=== PATIENT | female | born 1950 | race Caucasian/White ===

== ENCOUNTER 2016-09-13 23:05 | Observation (INO) | payer MEDICARE, OTHER ==
[2016-09-13] MEDS ORDERED: METHYLPREDNISOLONE INJ 125 MG/2 ML SDV IV ONE (23:39)
[2016-09-13] MEDS ORDERED: IPRATROPIUM/ALBUTEROL 0.5-2.5 MG/3 ML AMPUL NEB ONE (23:39)
--- NOTE | 2016-09-13 23:55 | ER Document Report ---
ED General - General Chief Complaint: Breathing Difficulty Stated Complaint: DIFFICULTY BREATHING Notes: Patient is 66-year-old female the history of smoking who presents with difficulty breathing and wheezing. She does not use an inhaler at home. Her primary care doctor is Dr. Garcia. She says she started with some difficulty breathing over last 2 days. No fevers. No vomiting. No diarrhea. No treatment at home. No other complaints at this time. No previous history of intubation for wheezing or bronchitis. TRAVEL OUTSIDE OF THE [place] IN LAST 30 DAYS: No - Related Data Allergies/Adverse Reactions: No Known Allergies Allergy (Verified 09/14/16 00:15) Past Medical History - Social History Smoking Status: Current Every Day Smoker Frequency of alcohol use: None Drug Abuse: None Family History: Reviewed & Not Pertinent - Past Medical History Cardiac Medical History: Reports: Hx Congestive Heart Failure, Hx Hypercholesterolemia, Hx Hypertension Review of Systems - Review of Systems Notes: My Normal Review Basic REVIEW OF SYSTEMS: CONSTITUTIONAL : Denies fever, chills, or sweats. Denies recent illness. EENT: Denies eye, ear, throat, or mouth pain or symptoms. Denies nasal or sinus congestion. CARDIOVASCULAR: Denies chest pain. RESPIRATORY: Some wheezing. The current cough GASTROINTESTINAL: Denies abdominal pain. Denies nausea, vomiting, or diarrhea. Denies constipation. Last BM: MUSCULOSKELETAL: Denies neck or back pain or joint pain or swelling. SKIN: Denies rash or skin lesions. NEUROLOGICAL: Denies altered mental status or loss of consciousness. Denies headache. Denies weakness or paralysis or loss of use of either side. Denies problems with gait or speech. Denies sensory or motor loss. ALL OTHER SYSTEMS REVIEWED AND NEGATIVE. Physical Exam - Vital signs Vitals: Temp Pulse Resp BP Pulse Ox 98.0 F 88 24 H 146/70 H 90 L 09/13/16 23:07 09/13/16 23:07 09/13/16 23:07 09/13/16 23:07 09/13/16 23:07 - Notes Notes: General Appearance: Well nourished, alert, cooperative, mild acute distress, no obvious discomfort. Vitals: reviewed, See vital signs table. Head: no swelling or tenderness to the head Eyes: PERRL, EOMI, Conjuctiva clear Mouth: No decreasd moisture Throat: No tonsillar inflammation, No airway obstruction, No lymphadenopathy Neck: Supple, no neck tenderness, No thyromegaly Lungs: Diffuse wheezing. Some rhonchi good air exchange. Heart: Normal rate, Regular rythm, No murmur, no rub Abdomen: Normal BS, soft, No rigidity, No abdominal tenderness, No guarding, no rebound, no abdominal masses, no organomegaly Extremities: strength 5/5 in all extremities, good pulses in all extremities, no swelling or tenderness in the extremities, no edema. Skin: warm, dry, appropriate color, no rash Neuro: speech clear, oriented x 3, normal affect, responds appropriately to questions. Course - Re-evaluation Re-evalutation: 09/14/16 01:58 On reevaluation patient says she is feeling improved; however, her lungs are still very coarse and rhoncorous. Also she is 91-92% on 2 L of oxygen. She usually does not wear oxygen at home. We will give her 2 more DuoNeb treatments and reassess. - Vital Signs Vital signs: Temp Pulse Resp BP Pulse Ox 98.0 F 88 12 101/60 90 L 09/14/16 02:56 09/13/16 23:07 09/14/16 03:01 09/14/16 03:01 09/14/16 03:01 - Laboratory Result Diagrams: 09/13/16 23:36 09/13/16 23:36 Laboratory results interpreted by me: 09/13/16 09/13/16 23:36 23:36 MCH 33.5 H Plt Count 130 L Glucose 123 H Calcium 10.3 H - Transfer of Care Notes: 09/14/16 03:48 Patient is feeling improved after the breathing treatments; however, patient still has diffuse wheezing and only fair air movement. Her distress is gone but she still has significant wheezing and still is requiring supplemental oxygen. I have spoken with her and she does agree to admission. I did speak with the hospitalist, Dr. Booth, who agrees to admit the patient at this time. Dictation of this chart was performed using voice recognition software; therefore, there may be some unintended grammatical errors. Discharge - Discharge Clinical Impression: Bronchitis Condition: Stable Disposition: ADMITTED OBSERVATION Admitting Provider: [facility] Unit Admitted: Telemetry
[2016-09-14 00:03] LABS: ABSOLUTE BASOPHILS # (AUTO) 0.1 10^3/uL (0.0-0.2); ABSOLUTE EOSINOPHILS # (AUTO) 0.1 10^3/uL (0.0-0.6); ABSOLUTE LYMPHOCYTES (AUTO) 1.8 10^3/uL (0.5-4.7); BASOPHILS % (AUTO) 0.6 % (0-2); EOSINOPHILS % (AUTO) 1.6 % (0-6); HEMATOCRIT 41.7 % (36.0-47.0); HEMOGLOBIN 14.3 g/dL (12.0-15.5); HGB HCT DIFFERENCE 1.2; LYMPHOCYTES % (AUTO) 19.8 % (13-45); MEAN CORPUSCULAR HEMOGLOBIN 33.5 pg (27.0-33.4); MEAN CORPUSCULAR HGB CONC 34.4 g/dL (32.0-36.0); MEAN CORPUSCULAR VOLUME 97 fl (80-97); MONOCYTES % (AUTO) 11.3 % (3-13); RED BLOOD COUNT 4.29 10^6/uL (3.72-5.28); RED CELL DISTRIBUTION WIDTH 13.9 % (11.5-14.0); SEGMENTED NEUTROPHILS % (AUTO) 66.7 % (42-78)
[2016-09-14] MEDS: MAGNESIUM SULFATE/D5W 100 ML IV SCH ×2 (00:04→01:18)
[2016-09-14 00:08] LABS: ANION GAP 13 (5-19); BLOOD UREA NITROGEN 12 mg/dL (7-20); CALCIUM 10.3 mg/dL (8.4-10.2); CARBON DIOXIDE 25 mmol/L (22-30); CHLORIDE 103 mmol/L (98-107); CREATININE RESULT 0.75 mg/dL (0.52-1.25); GLUCOSE 123 mg/dL (75-110); POTASSIUM 4.1 mmol/L (3.6-5.0); SODIUM 140.7 mmol/L (137-145)
[2016-09-14] MEDS ORDERED: IPRATROPIUM/ALBUTEROL 0.5-2.5 MG/3 ML AMPUL NEB ONE (01:58)
[2016-09-14] MEDS ORDERED: IPRATROPIUM/ALBUTEROL 0.5-2.5 MG/3 ML AMPUL NEB PRN (05:04)
[2016-09-14] MEDS ORDERED: NICOTINE 21 MG/24 HR PATCH.TD24 TD PRN (05:04)
[2016-09-14] MEDS ORDERED: GUAIFENESIN SYRP 200 MG/10 ML UDC PO PRN (05:15)
[2016-09-14] MEDS ORDERED: ACETAMINOPHEN 325 MG TABLET PO PRN (05:15)
[2016-09-14 05:17] LABS: ADD ON TESTING BLD IN LAB ACKNOWLEDGE
[2016-09-14 05:28] LABS: CREATINE KINASE 49 U/L (30-135)
[2016-09-14 05:42] LABS: CREATINE KINASE MB 0.31 ng/mL (<4.55)
--- NOTE | 2016-09-14 05:42 | PDOC H&P ---
History of Present Illness Admission Date/PCP: 09/14/16 04:57 ROMAINE JOHNSON, Sallie, Dr. Montana Patient complains of: difficulty breathing History of Present Illness: ISRA PARRA is a 66 year old female underlying nonhome O2 dependent COPD, one and a half pack-a-day smoker, who presents to the emergency room for evaluation of above complaint. Patient has been discussed with emergency room physician who evaluated the patient. She describes a 2 day history of slowly progressive shortness of breath, in particular with much of any exertion. Accompanied by wheezing, which is unusual for her, along with a cough productive of some sputum, which she cannot completely expectorate. No sick contacts. Has not had a flu vaccination this year, but has had 2 previous Pneumovax. 2 L oxygen brings her saturation to 92% in the emergency room..When taken off oxygen, her sats drop to the mid to upper 80 range. ongoing wheezing and rhonchorous breath sounds. There has been no fever or shaking chills, nausea vomiting, diarrhea or dysuria. Does not use an inhaler at home. No prior history of intubation for respiratory difficulty. Denies underlying asthma. Laboratory results are listed in [facility] and are reviewed. X-ray summary results are listed below, with full report(s) reviewed. . EKG pending. Social history/personal habits: . Lives with friend. Retired. One and half packs of cigarettes per day. Does not drink everyday, but 3 beers a day when she does. Rare marijuana use; no other illicit drug use. Family History : Son and daughter are both , daughter having passed approximately 3 months ago. Siblings are . Both parents of cancer. Allergies/adverse reactions NKDA. Home medications are reviewed by bottle review and discussion with patient and are to be reconciled by nursing staff in [facility]. Home medications initially autopopulated into [facility] may not accurately reflect patient's true medications, dosages, and/or frequencies. REVIEW OF SYSTEMS: Constitutional: No fever or chills. Eyes: Wears glasses. ENT: No swallowing problems or complaints. No hearing problems or complaints. Pulmonary: See history and present illness. Cardiovascular: No current complaints, including chest pain. Gastrointestinal: No current complaints, including nausea or vomiting. Skin: No current complaints, including rashes. Hematologic: No unusual easy bruising or bleeding. Neurologic: No current complaints, including numbness or tingling. Musculoskeletal: Joint pain from arthritis. Psychiatric: Mild Anxiety depression; denies suicidal or homicidal ideation. Endocrine: No current complaints, including polyuria. Genitourinary: No current complaints, including dysuria. 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 5 feet 6 inches tall. 65.8 kg. BMI 23.4 kg/m. Blood pressure 105/68. Pulse 78 and regular. 94% saturation on 2 L oxygen per nasal cannula. Respirations are 19 and unlabored. Well-nourished well-developed female, appearing approximately her stated age. Pleasant awake alert and cooperative. No obvious distress other than perhaps mildly anxious. Skin is warm and dry. No grossly obvious evidence of rash in areas of skin examined. No subcutaneous nodules palpated. ENT: Hearing grossly normal to normal conversation. Tongue midline on protrusion pink and slightly moist. Eyes: No scleral icterus. Pupils equal and reactive to light at 4 mm. [place] conjunctivae. Neck is supple and nontender to gentle active range of motion and palpation. Midline trachea. No palpable thyroid nodule mass enlargement or tenderness. Lymphatic: No palpable cervical or clavicular nodes. Neck and lymphatic exams limited by patient body habitus. Psychiatric: Reasonable insight into acute and chronic medical issues. Oriented to time location and why here. Lungs: Auscultation reveals equal breath sounds bilaterally. Slightly productive cough on occasion. Slightly coarse breath sounds and mild expiratory wheezing in the upper half of each hemithorax. No use of accessory respiratory muscles. Cardiovascular: Heart regular rate and rhythm, without gallop murmur or rub. No carotid or abdominal aortic bruits. No ankle or pedal edema. Faintly palpable dorsalis pedis pulses. Abdomen: soft, , slightly distended nontender with positive bowel sounds. Unable to adequately evaluate abdomen for masses or organomegaly due to distention. Extremities: Feet are warm and dry. No calf tenderness to compression. No grossly obvious visual evidence of calf swelling. Gentle manipulation of lower extremities fails to reveal any obvious evidence of injury or instability to knees hips or ankles. Neurologic: Moves upper extremities grossly normally. Patellar reflexes absent. Absent Babinski. Light touch is intact at feet. Dorsiflexion and plantarflexion of feet 5 / 5 and symmetric. Past Medical History Cardiac Medical History: Reports: Congestive Heart Failure - Uncertain if systolic and/or diastolic., DVT - History of, Hyperlipidema, Hypertension Denies: Myocardial Infarction, Pulmonary Embolism Pulmonary Medical History: Reports: Chronic Obstructive Pulmonary Disease (COPD) EENT Medical History: Reports: Eyes - Glasses Denies: Ears, Throat Neurological Medical History: Denies: Hemorrhagic CVA, Ischemic CVA, Seizures Endocrine Medical History: Denies: Diabetes Mellitus Type 1, Diabetes Mellitus Type 2, Hyperthyroidism, Hypothyroidism GI Medical History: Reports: Other - Irritable bowel syndromediarrhea. Denies: Cirrhosis, Gastroesophageal Reflux Disease, Hepatitis, Peptic Ulcer Disease Musculoskeltal Medical History: Reports: Arthritis Skin Medical History: Reports: None Denies: Eczema, Psoriasis Psychiatric Medical History: Reports: Depression, General Anxiety Disorder, Tobacco Dependency Denies: Substance Abuse Hematology: Reports: None Infectious Medical History: Denies: Hepatitis B, Hepatitis C Past Surgical History Past Surgical History: Reports: Adenoidectomy, Tubal Ligation Social History Information Source: Patient, Emergency Med Personnel, [facility] Records Lives with: Friend Smoking Status: Current Every Day Smoker Frequency of Alcohol Use: Occasional Drugs: Marijuana - Advance Directive Resuscitation Status: Full Code Surrogate healthcare decision maker:: Uncertain at this point in time. Family History Family History: Reviewed & Not Pertinent Parental Family History Reviewed: Yes Children Family History Reviewed: Yes Sibling(s) Family History Reviewed.: Yes Medication/Allergy Home Medications: Amlodipine Besylate 5 mg PO DAILY 05/28/12 Aspirin 81 mg PO DAILY 05/28/12 Carvedilol Phosphate [Coreg CR 80 mg Ext. Release Capsule] 80 mg PO DAILY Multivitamins W-Minerals [Multi-Vit 55 Plus] 1 each PO DAILY 05/28/12 Coconut Oil 1 cap PO DAILY 09/14/16 Fish Oil/Dha/Epa [Fish Oil 1,200 mg Fish Oil] 1 cap PO DAILY 09/14/16 Furosemide 1 tab PO DAILY 09/14/16 Lisinopril 1 tab PO BID 09/14/16 Potassium Chloride 1 tab PO DAILY 09/14/16 Rosuvastatin Calcium 1 tab PO DAILY 09/14/16 Allergies/Adverse Reactions: No Known Allergies Allergy (Verified 09/14/16 00:15) Physical Exam Vital Signs: Temp Pulse Resp BP Pulse Ox 98.0 F 88 19 105/68 94 09/14/16 02:56 09/13/16 23:07 09/14/16 05:01 09/14/16 04:01 09/14/16 05:01 Results Impressions: Chest X-Ray 09/13/16 23:38 IMPRESSION: NO ACUTE RADIOGRAPHIC FINDING IN THE CHEST. Assessment & Plan - Diagnosis (1) COPD exacerbation Is this a current diagnosis for this admission?: YesPlan: Patient will be admitted under COPD exacerbation protocol. Incentive spirometry twice a day. PRN DuoNeb's. Solu-Medrol Prevacid for gastritis prophylaxis. Antibiotics will consist of intravenous Zithromax, along with Rocephin.. I strongly encouraged patient to notify staff should patient feel that respiratory status is worsening. Patient is a full code. I have strongly encouraged patient not to get out of bed without notifying staff , , to avoid a fall with injury. Knee high SCDs for DVT prophylaxis, along with subcutaneous Lovenox Impression and plans were discussed with patient, who concurs. Time spent in evaluation and management of patient: 65 minutes. (2) Hypoxemia Is this a current diagnosis for this admission?: Yes (3) Thrombocytopenia Is this a current diagnosis for this admission?: YesPlan: Mild. Further follow-up/evaluation per primary care provider discretion. (4) CHF (congestive heart failure) Qualifiers: Congestive heart failure type: unspecified congestive heart failure type Congestive heart failure chronicity: chronic Qualified Code(s): I50.9 - Heart failure, unspecified Is this a current diagnosis for this admission?: YesPlan: Clinically stable at this point in time. Resume home medications as appropriate once these have been reviewed. (5) HTN (hypertension) Qualifiers: Hypertension type: essential hypertension Qualified Code(s): I10 - Essential (primary) hypertension Is this a current diagnosis for this admission?: YesPlan: Resume home medications as appropriate once these have been reviewed. (6) Hyperlipidemia Qualifiers: Hyperlipidemia type: unspecified Qualified Code(s): E78.5 - Hyperlipidemia, unspecified Is this a current diagnosis for this admission?: YesPlan: Resume home medications as appropriate once these have been reviewed. (7) Tobacco dependency Is this a current diagnosis for this admission?: YesPlan: When necessary nicotine patch.
[2016-09-14 05:43] LABS: TROPONIN I < 0.012 ng/mL
[2016-09-14] MEDS ORDERED: CEFTRIAXONE 1 GM/D5W RTU 1 GM/50 ML RTUPB IV ONE (06:00)
[2016-09-14] MEDS ORDERED: AZITHROMYCIN 500 MG in DEXTROSE 5%-WATER 250 ML IV ONE (06:00)
[2016-09-14] MEDS ORDERED: LANSOPRAZOLE 30 MG TAB.RAP.DR PO SCH (06:00)
[2016-09-14] MEDS: METHYLPREDNISOLONE INJ 40 MG/1 ML SDV IV SCH ×2 (06:19→13:29)
[2016-09-14] MEDS ORDERED: INFLUENZA ADLT QUAD (36MOS+) 2016-17 VAC 0.5 ML SYR IM PRN (07:14)
[2016-09-14] MEDS ORDERED: ENOXAPARIN SODIUM INJ 40 MG/0.4 ML DISP.SYRIN SUBCUT SCH (08:00)
[2016-09-14] MEDS ORDERED: CARVEDILOL 12.5 MG TABLET PO SCH (08:00)
--- NOTE | 2016-09-14 09:12 | EKG REPORT ---
SEVERITY:- ABNORMAL ECG - SINUS RHYTHM PROBABLE LEFT ATRIAL ABNORMALITY NONSPECIFIC IVCD WITH LAD LVH WITH SECONDARY REPOLARIZATION ABNORMALITY ANTERIOR INFARCT VS LBBB : Confirmed by: Rosaline Chavez 14-Sep-2016 09:11:37
[2016-09-14] MEDS ORDERED: AZITHROMYCIN 500 MG in DEXTROSE 5%-WATER 250 ML IV SCH (10:00)
[2016-09-14] MEDS ORDERED: FUROSEMIDE 20 MG TABLET PO SCH (10:00)
[2016-09-14] MEDS ORDERED: ASPIRIN 81 MG TABLET, CHEWABLE PO SCH (10:00)
[2016-09-14] MEDS ORDERED: AMLODIPINE BESYLATE 5 MG TABLET PO SCH (10:00)
[2016-09-14] MEDS ORDERED: CEFTRIAXONE 1 GM/D5W RTU 50 ML IV SCH (10:00)
[2016-09-14] MEDS ORDERED: LISINOPRIL 10 MG TABLET PO SCH (10:00)
[2016-09-14] MEDS ORDERED: POTASSIUM CHLORIDE PO SCH (10:00)
[2016-09-14] MEDS ORDERED: POTASSIUM CHLORIDE 10 MEQ TABLET.SA PO SCH (11:00)
--- NOTE | 2016-09-14 14:36 | PDOC DISCHARGE SUMMARY ---
General - Admit/Disc Date/PCP Admission Date/Primary Care Provider: 09/14/16 05:04 ROMAINE JOHNSON, Outpatient radio journalist: Dr. Martines Discharge Date: 09/14/16 - Discharge Diagnosis (2) COPD exacerbation Is this a current diagnosis for this admission?: Yes (3) Acute respiratory failure with hypoxia Is this a current diagnosis for this admission?: Yes (4) Coronary artery disease Is this a current diagnosis for this admission?: Yes (5) Thrombocytopenia Is this a current diagnosis for this admission?: Yes (6) CHF (congestive heart failure) Is this a current diagnosis for this admission?: Yes (7) HTN (hypertension) Is this a current diagnosis for this admission?: Yes (8) Hyperlipidemia Is this a current diagnosis for this admission?: Yes (9) Tobacco dependency Is this a current diagnosis for this admission?: Yes - Additional Information Resuscitation Status: Full Code Discharge Diet: As Tolerated Discharge Activity: Activity As Tolerated Home Medications: Amlodipine Besylate 10 mg PO DAILY 05/28/12 Aspirin 81 mg PO BID 05/28/12 Carvedilol Phosphate [Coreg CR 80 mg Ext. Release Capsule] 80 mg PO DAILY Albuterol Sulfate [Ventolin Hfa] 1 - 2 puff IH Q4 PRN #1 [id number] 09/14/16 Coconut Oil 1 cap PO DAILY 09/14/16 Doxycycline Hyclate 100 mg PO BID #10 capsule 09/14/16 Fish Oil/Dha/Epa [Fish Oil 1,200 mg Fish Oil] 3,600 mg PO BID 09/14/16 Furosemide 1 tab PO DAILY 09/14/16 Lisinopril 1 tab PO BID 09/14/16 Mirtazapine [Remeron] 45 mg PO QHS 09/14/16 Potassium Chloride 1 tab PO DAILY 09/14/16 Prednisone 10 mg PO DAILY #21 tablet 09/14/16 Rosuvastatin Calcium 1 tab PO DAILY 09/14/16 History of Present Illness Patient complains of: Shortness of breath History of Present Illness: ISRA PARRA is a 66 year old female underlying nonhome O2 dependent COPD, one and a half pack-a-day smoker, who presents to the emergency room for evaluation shortness of breath. Patient described a 2 day history of slowly progressive shortness of breath, in particular with much of any exertion. Accompanied by wheezing, which is unusual for her, along with a cough productive of some sputum, which she cannot completely expectorate. No sick contacts. Has not had a flu vaccination this year, but has had 2 previous Pneumovax. While in the emergency department the patient was placed on oxygen and 2 L oxygen brought her saturation to 92% in the emergency room. When taken off oxygen, her sats drop to the mid to upper 80 range. Due to ongoing wheezing and rhonchorous breath sounds the patient was referred to the hospitalist for observation and management. There has been no fever or shaking chills, nausea vomiting, diarrhea or dysuria. Does not use an inhaler at home. No prior history of intubation for respiratory difficulty. Denies underlying asthma. Hospital Course Hospital Course: The patient was admitted to [facility]. The patient was placed on scheduled nebs as well as PRN nebs, steroids, and supplemental oxygen. The patient's oxygen, steroids, and nebs were titrated and weaned. The patient is back to baseline within 24 hours and able to complete sentences. The patient remained afebrile her blood pressures in a good range the patient and was not tachycardic. The patient had been producing a scant amount of sputum however this is completely resolved. The patient has no complaints at this time and is eager for discharge. I discussed the patient's EKG findings with her radio journalist Dr. Martines. Patient does have a known history of coronary artery disease and is followed on an outpatient basis. During the patient's stay she had a unremarkable set of cardiac enzymes, no events on alarm security or surveillance monitor, denied any chest pain. Patient to follow with her radio journalist as already scheduled. Physical Exam Vital Signs: Temp Pulse Resp BP Pulse Ox 98.1 F 88 14 101/56 L 97 09/14/16 10:55 09/14/16 12:37 09/14/16 12:37 09/14/16 10:55 09/14/16 12:37 Intake & Output 09/12/16 09/13/16 09/14/16 23:59 23:59 23:59 Intake Total 1260 Balance 1260 Weight 64.8 kg General appearance: PRESENT: no acute distress, cooperative, well-developed, well-nourished Head exam: PRESENT: atraumatic, normocephalic Eye exam: PRESENT: conjunctiva pink, EOMI, PERRLA. ABSENT: scleral icterus Ear exam: PRESENT: normal external ear exam Mouth exam: PRESENT: moist, tongue midline Neck exam: ABSENT: carotid bruit, JVD, lymphadenopathy, thyromegaly Respiratory exam: PRESENT: clear to auscultation roberto, symmetrical, unlabored. ABSENT: rales, rhonchi, tachypnea, wheezes Cardiovascular exam: PRESENT: RRR. ABSENT: diastolic murmur, rubs, systolic murmur Pulses: PRESENT: normal dorsalis pedis pul Vascular exam: PRESENT: normal capillary refill GI/Abdominal exam: PRESENT: normal bowel sounds, soft. ABSENT: distended, guarding, mass, organolmegaly, rebound, tenderness Rectal exam: PRESENT: deferred Extremities exam: PRESENT: full ROM. ABSENT: calf tenderness, clubbing, pedal edema Neurological exam: PRESENT: alert, awake, oriented to person, oriented to place , oriented to time, oriented to situation, CN II-XII grossly intact. ABSENT: motor sensory deficit Psychiatric exam: PRESENT: appropriate affect, normal mood. ABSENT: homicidal ideation, suicidal ideation Skin exam: PRESENT: dry, intact, warm. ABSENT: cyanosis, rash Results Laboratory Results: Labs- Last Values WBC 9.0 10^3/uL (4.0-10.5) 09/13/16 23:36 RBC 4.29 10^6/uL (3.72-5.28) 09/13/16 23:36 Hgb 14.3 g/dL (12.0-15.5) 09/13/16 23:36 Hct 41.7 % (36.0-47.0) 09/13/16 23:36 MCV 97 fl (80-97) 09/13/16 23:36 MCH 33.5 pg (27.0-33.4) H 09/13/16 23:36 MCHC 34.4 g/dL (32.0-36.0) 09/13/16 23:36 RDW 13.9 % (11.5-14.0) 09/13/16 23:36 Plt Count 130 10^3/uL (150-450) L 09/13/16 23:36 Seg Neutrophils % 66.7 % (42-78) 09/13/16 23:36 Lymphocytes % 19.8 % (13-45) 09/13/16 23:36 Monocytes % 11.3 % (3-13) 09/13/16 23:36 Eosinophils % 1.6 % (0-6) 09/13/16 23:36 Basophils % 0.6 % (0-2) 09/13/16 23:36 Absolute Neutrophils 6.0 10^3/uL (1.7-8.2) 09/13/16 23:36 Absolute Lymphocytes 1.8 10^3/uL (0.5-4.7) 09/13/16 23:36 Absolute Monocytes 1.0 10^3/uL (0.1-1.4) 09/13/16 23:36 Absolute Eosinophils 0.1 10^3/uL (0.0-0.6) 09/13/16 23:36 Absolute Basophils 0.1 10^3/uL (0.0-0.2) 09/13/16 23:36 Sodium 140.7 mmol/L (137-145) 09/13/16 23:36 Potassium 4.1 mmol/L (3.6-5.0) 09/13/16 23:36 Chloride 103 mmol/L (98-107) 09/13/16 23:36 Carbon Dioxide 25 mmol/L (22-30) 09/13/16 23:36 Anion Gap 13 (5-19) 09/13/16 23:36 BUN 12 mg/dL (7-20) 09/13/16 23:36 Creatinine 0.75 mg/dL (0.52-1.25) 09/13/16 23:36 Est GFR ( Amer) > 60 (>60) 09/13/16 23:36 Est GFR (Non-Af Amer) > 60 (>60) 09/13/16 23:36 Glucose 123 mg/dL (75-110) H 09/13/16 23:36 Calcium 10.3 mg/dL (8.4-10.2) H 09/13/16 23:36 Creatine Kinase 49 U/L (30-135) 09/13/16 23:36 CK-MB (CK-2) 0.31 ng/mL (<4.55) 09/13/16 23:36 Troponin I < 0.012 ng/mL 09/13/16 23:36 Impressions: Chest X-Ray 09/13/16 23:38 IMPRESSION: NO ACUTE RADIOGRAPHIC FINDING IN THE CHEST. Qualifiers PATEINT BEING DISCHARGED WITH ANY OF THE FOLLOWING DIAGNOSIS?: No Plan Discharge Plan: The patient is to followup with their primary care provider, [ Radha], within one week for hospital followup regarding COPD. The patient is to follow-up with Dr. Montana her radio journalist as already scheduled. Time Spent: Greater than 30 Minutes
[2016-09-14 16:04] VITALS: BP 111/53
--- NOTE | 2016-09-14 21:59 | EKG REPORT ---
SEVERITY:- ABNORMAL ECG - SINUS RHYTHM FIRST DEGREE AV BLOCK PROBABLE LEFT ATRIAL ABNORMALITY NONSPECIFIC IVCD WITH LAD LEFT VENTRICULAR HYPERTROPHY ANTEROLATERAL INFARCT : Confirmed by: Rosaline Chavez 14-Sep-2016 21:58:41
[2016-09-14] MEDS ORDERED: ATORVASTATIN CALCIUM 20 MG TABLET PO SCH (22:00)
[2016-09-14] MEDS ORDERED: ROSUVASTATIN CALCIUM PO SCH (22:00)
[2016-09-14] MEDS ORDERED: MIRTAZAPINE 15 MG TABLET PO SCH (22:00)
[2016-09-15] MEDS ORDERED: POTASSIUM CHLORIDE 10 MEQ TABLET.SA PO SCH (10:00)
== END 2016-09-14 16:23 | disposition home or self-care (01) ==
LOC: ER 23:05 → UNDOADMOB 09-14 04:57 → EH 09-14 04:57 → 3N 09-14 06:08 → EH 09-14 06:08
PROVIDERS: ADMIT Internal Medicine; ATTEND Internal Medicine
PROC: 3E0F7GC Introduction of Other Therapeutic Substance into Respiratory Tract, Via Natural or Artificial Opening (ICD-10-PCS; principal; 2016-09-13)
PROC: 3E0234Z Introduction of Serum, Toxoid and Vaccine into Muscle, Percutaneous Approach (ICD-10-PCS; 2016-09-14)
DX: J44.1 Chronic obstructive pulmonary disease with (acute) exacerbation (principal); J96.01 Acute respiratory failure with hypoxia; I25.10 Atherosclerotic heart disease of native coronary artery without angina pectoris; D69.6 Thrombocytopenia, unspecified; I11.0 Hypertensive heart disease with heart failure; I50.9 Heart failure, unspecified; E78.5 Hyperlipidemia, unspecified; F17.210 Nicotine dependence, cigarettes, uncomplicated; F41.9 Anxiety disorder, unspecified; F32.9 Major depressive disorder, single episode, unspecified; M19.90 Unspecified osteoarthritis, unspecified site; Z79.899 Other long term (current) drug therapy; Z79.82 Long term (current) use of aspirin; Z80.9 Family history of malignant neoplasm, unspecified; Z23 Encounter for immunization
CPT/HCPCS: 94640 ×2; 99285; 96375; 96365; 96366; 96367; 36415 ×2; 87040; 82553; 82550; 85025; 80048; 84484; 71010; 90686; 93005; 94799; 93010; G0378 ×2; A9270 ×7; J2920; J2930; J3475; J3490; J7060; J0456; J0696; J7620

== ENCOUNTER 2016-09-16 11:08 | Inpatient (IN) | payer MEDICARE, OTHER ==
[2016-09-16] MEDS ORDERED: IPRATROPIUM/ALBUTEROL 0.5-2.5 MG/3 ML AMPUL NEB ONE (11:34)
[2016-09-16] MEDS ORDERED: METHYLPREDNISOLONE INJ 125 MG/2 ML SDV IV ONE (11:49)
[2016-09-16] MEDS ORDERED: ALBUTEROL SULFATE 0.083% NEB 2.5 MG/3 ML AMPUL NEB ONE (11:51)
--- NOTE | 2016-09-16 11:52 | ER Document Report ---
ED Respiratory Problem - General Chief Complaint: Breathing Difficulty Stated Complaint: DIFFICULTY BREATHING Time seen by provider: 11:48 Mode of Arrival: Ambulatory Information source: Patient Notes: 66-year-old smoker with history of CHF, hyperlipidemia, CAD, HTN, tobacco dependency, COPD, was admitted to [facility] overnight on 09-13 for respiratory failure. She does not have home oxygen or nebulizer treatment. She went home became more short of breath and she knew that she was going downhill so she came back to the emergency room today. Her pulse ox was 83% prior to 100% oxygen which got her to 91-92%. She's never been intubated or on BiPAP. No fever or chills. She has not started the doxycycline that they prescribed to her. TRAVEL OUTSIDE OF THE [place] IN LAST 30 DAYS: No - Related Data Allergies/Adverse Reactions: No Known Allergies Allergy (Verified 09/16/16 11:16) Home Medications: Current Home Medications Albuterol Sulfate [Ventolin Hfa] 2 puff IH Q4HP PRN 09/16/16 [History] Amlodipine Besylate [Norvasc 10 mg Tablet] 5 mg PO DAILY 09/16/16 [History] Aspirin [Aspirin EC] 81 mg PO DAILY 09/16/16 [History] Carvedilol Phosphate [Coreg Cr] 80 mg PO DAILY 09/16/16 [History] Coconut Oil 1 cap PO DAILY 09/16/16 [History] Doxycycline Hyclate 100 mg PO BID 09/16/16 [History] Furosemide [Lasix 20 mg Tablet] 20 mg PO DAILY 09/16/16 [History] Lisinopril [Prinivil 10 mg Tablet] 10 mg PO Q12 09/16/16 [History] Mirtazapine [Remeron] 45 mg PO QHS 09/16/16 [History] [place]-3S/Dha/Epa/Fish Oil [Fish Oil 1,200 mg Softgel] 3 cap PO Q12 09/16/16 [ History] Potassium Chloride 20 meq PO DAILY 09/16/16 [History] Prednisone 10 mg PO DAILY 09/16/16 [History] Rosuvastatin Calcium 10 mg PO DAILY 09/16/16 [History] Past Medical History - General Information source: Patient - Social History Smoking Status: Current Every Day Smoker Chew tobacco use (# tins/day): No Frequency of alcohol use: None Drug Abuse: None Lives with: Spouse/Significant other Family History: Reviewed & Not Pertinent Patient has suicidal ideation: No Patient has homicidal ideation: No - Past Medical History Cardiac Medical History: Reports: Hx Congestive Heart Failure - Uncertain if systolic and/or diastolic., Hx Coronary Artery Disease, Hx DVT - History of, Hx Hypercholesterolemia, Hx Hypertension Pulmonary Medical History: Reports: Hx COPD Musculoskeltal Medical History: Reports Hx Arthritis Psychiatric Medical History: Reports: Hx Depression Past Surgical History: Reports: Hx Adenoidectomy, Hx Tubal Ligation - Immunizations Hx Pneumococcal Vaccination: 09/13/14 Review of Systems - Review of Systems Constitutional: No symptoms reported EENT: No symptoms reported Cardiovascular: No symptoms reported Respiratory: See HPI Gastrointestinal: No symptoms reported Genitourinary: No symptoms reported Female Genitourinary: No symptoms reported Musculoskeletal: No symptoms reported Skin: No symptoms reported Hematologic/Lymphatic: No symptoms reported Neurological/Psychological: No symptoms reported Physical Exam - Vital signs Vitals: Temp Pulse Resp BP Pulse Ox 98.3 F 80 20 109/57 L 85 L 09/16/16 11:23 09/16/16 11:23 09/16/16 11:23 09/16/16 11:23 09/16/16 11:23 Interpretation: Hypoxic, Tachypneic - Notes Notes: respiratory distress with oxygen 83-85%, rr 40 - General General appearance: Alert, Anxious Notes: bluish lips - HEENT Head: Normocephalic, Atraumatic Eyes: Normal Conjunctiva: Normal Pupils: PERRL Tympanic membrane: Normal Mucous membranes: Dry Pharynx: Normal Neck: Supple - Respiratory Respiratory status: No respiratory distress Chest status: Nontender Breath sounds: Nonproductive cough, Rhonchi, Wheezing Chest palpation: Normal - Cardiovascular Rhythm: Regular Heart sounds: Normal auscultation Murmur: No - Abdominal Inspection: Normal Distension: No distension Bowel sounds: Normal Tenderness: Nontender. No: Tender Organomegaly: No organomegaly. No: Hepatomegaly, Splenomegaly - Back Back: Normal, Nontender. No: CVA tenderness - Extremities General upper extremity: Normal inspection, Nontender, Normal color, Normal ROM , Normal temperature General lower extremity: Normal inspection, Nontender, Normal color, Normal ROM , Normal temperature, Normal weight bearing. No: Shen's sign Notes: toes pink, - Neurological Neuro grossly intact: Yes Cognition: Normal Orientation: AAOx4 [place] Coma Scale Eye Opening: Spontaneous Meme Coma Scale Verbal: Oriented Meme Coma Scale Motor: Obeys Commands [place] Coma Scale Total: 15 Speech: Normal Motor strength normal: LUE, RUE, LLE, RLE Sensory: Normal - Psychological Associated symptoms: Normal affect, Normal mood - Skin Skin Temperature: Warm Skin Moisture: Dry Skin Color: Normal Skin irregularity: negative: Rash Course - Re-evaluation Re-evalutation: 09/16/16 11:48 venous blood gas done on mask 9lpm non rebreater, oxygen up to 91%. 09/16/16 12:52 Chest x-ray shows new airspace disease medial right upper lobe and left midlung with some bibasilar bandlike atelectasis. Worrisome for multifocal pneumonia. Levaquin ordered. Pulse ox is 98% at this time with 100% O2 and a second albuterol 5 mg ordered. The Solu-Medrol is being given at this time. 09/16/16 13:19 abg being drawn, ct roberto pneumonia, no PE, call to dr. Plunkett for admission. 09/16/16 13:45 Dioni Johnson MD wants the patient on O2 at 5 L and obtain an ABG to find out what to do to handle her hypoxia. She is maintaining 87% on nasal cannula and ABG will be drawn in 10 minutes. prior to deciding what bed to place her in. 09/16/16 14:07 o2 on 6lpm by respiratory due to pox 88, abg done on 5lpm 09/16/16 14:57 Dioni Johnson MD wants patient admitted to [facility] He is not retaining CO2 but she is hypoxic on ABG. - Vital Signs Vital signs: Temp Pulse Resp BP Pulse Ox 98.3 F 80 26 H 71/59 L 86 L 09/16/16 11:23 09/16/16 11:23 09/16/16 13:02 09/16/16 13:02 09/16/16 13:02 - Laboratory Result Diagrams: 09/16/16 11:46 09/16/16 11:46 Laboratory results interpreted by me: 09/16/16 09/16/16 09/16/16 11:46 11:46 11:46 WBC 17.2 H Seg Neutrophils % 85.2 H Lymphocytes % 9.0 L Absolute Neutrophils 14.7 H ABG pH ABG pO2 ABG Total CO2 ABG O2 Saturation VBG pH 7.44 H Glucose 146 H AST 40 H 09/16/16 13:57 WBC Seg Neutrophils % Lymphocytes % Absolute Neutrophils ABG pH 7.46 H ABG pO2 48.9 L ABG Total CO2 25.3 H ABG O2 Saturation 86.8 L VBG pH Glucose AST Discharge - Discharge Clinical Impression: Respiratory failure Qualifiers: Chronicity: acute Respiratory failure complication: hypoxia Qualified Code(s): J96.01 - Acute respiratory failure with hypoxia Bilateral pneumonia Qualifiers: Pneumonia type: due to unspecified organism Lung location: unspecified part of lung Qualified Code(s): J18.9 - Pneumonia, unspecified organism Leukocytosis Qualifiers: Leukocytosis type: other Qualified Code(s): D72.828 - Other elevated white blood cell count Condition: Fair Disposition: ADMITTED INPATIENT Admitting Provider: Radha Unit Admitted: [facility] Referrals: DIONI JOHNSON MD [Primary Care Provider] - Follow up as needed
[2016-09-16 12:04] LABS: VENOUS BLOOD BASE EXCESS 1.8 mmol/L; VENOUS BLOOD HCO3 25.8 mmol/L (20-32); VENOUS BLOOD PCO2 38.6 mmHg (35-63); VENOUS BLOOD PH 7.44 (7.30-7.42)
[2016-09-16 12:07] LABS: ABSOLUTE LYMPHOCYTES (AUTO) 1.5 10^3/uL (0.5-4.7); ABSOLUTE MONOCYTES (AUTO) 0.9 10^3/uL (0.1-1.4); ABSOLUTE NEUT (AUTO) 14.7 10^3/uL (1.7-8.2); BASOPHILS % (AUTO) 0.1 % (0-2); EOSINOPHILS % (AUTO) 0.3 % (0-6); HEMATOCRIT 44.4 % (36.0-47.0); HEMOGLOBIN 15.1 g/dL (12.0-15.5); HGB HCT DIFFERENCE 0.9; MEAN CORPUSCULAR HEMOGLOBIN 32.9 pg (27.0-33.4); MEAN CORPUSCULAR VOLUME 97 fl (80-97); MONOCYTES % (AUTO) 5.4 % (3-13); RED BLOOD COUNT 4.59 10^6/uL (3.72-5.28); RED CELL DISTRIBUTION WIDTH 13.9 % (11.5-14.0); SEGMENTED NEUTROPHILS % (AUTO) 85.2 % (42-78)
[2016-09-16 12:10] LABS: WHITE BLOOD COUNT 17.2 10^3/uL (4.0-10.5)
[2016-09-16 12:20] LABS: ALANINE AMINOTRANSFERASE 38 U/L (9-52); ALBUMIN 3.8 g/dL (3.5-5.0); ALKALINE PHOSPHATASE 74 U/L (38-126); ANION GAP 14 (5-19); ASPARTATE AMINO TRANSFERASE 40 U/L (14-36); BILIRUBIN,TOTAL 0.4 mg/dL (0.2-1.3); BLOOD UREA NITROGEN 11 mg/dL (7-20); CALCIUM 9.7 mg/dL (8.4-10.2); CARBON DIOXIDE 27 mmol/L (22-30); CHLORIDE 103 mmol/L (98-107); CREATINE KINASE 90 U/L (30-135); CREATININE RESULT 0.68 mg/dL (0.52-1.25); GLUCOSE 146 mg/dL (75-110); POTASSIUM 3.7 mmol/L (3.6-5.0); TOTAL PROTEIN 7.4 g/dL (6.3-8.2)
[2016-09-16 12:31] LABS: CREATINE KINASE MB 0.55 ng/mL (<4.55)
[2016-09-16 12:32] LABS: TROPONIN I < 0.012 ng/mL
[2016-09-16] MEDS ORDERED: LEVOFLOXACIN 750 MG/D5W RTU 150 ML IV ONE (12:47)
[2016-09-16] MEDS ORDERED: NORMAL SALINE 1000 ML 500 ML IV ONE (12:48)
[2016-09-16 14:15] LABS: ARTERIAL BLOOD BASE EXCESS 0.8 mmol/L; ARTERIAL BLOOD O2 SATURATION 86.8 % (94-98)
[2016-09-16] MEDS ORDERED: ACETAMINOPHEN 325 MG TABLET PO PRN (17:39)
--- NOTE | 2016-09-16 17:57 | PDOC H&P ---
History of Present Illness Admission Date/PCP: 09/16/16 15:01 ROMAINE JOHNSON, Patient complains of: Severe shortness of breath and wheezing over the past 48 hours History of Present Illness: ISRA PARRA is a 66 year old female With extensive past medical history who comes in today complaining of 48 hour off shortness of breath and cough and wheezing. She was admitted to the hospital and discharged about 3 days ago. Past Medical History Medical History: Other Cardiac Medical History: Reports: Congestive Heart Failure - Uncertain if systolic and/or diastolic., Coronary Artery Disease, DVT - History of, Hyperlipidema, Hypertension Denies: Myocardial Infarction, Pulmonary Embolism Pulmonary Medical History: Reports: Chronic Obstructive Pulmonary Disease (COPD) Neurological Medical History: Denies: Seizures Endocrine Medical History: Denies: Diabetes Mellitus Type 1, Diabetes Mellitus Type 2, Hyperthyroidism, Hypothyroidism GI Medical History: Denies: Cirrhosis, Gastroesophageal Reflux Disease, Hepatitis Musculoskeltal Medical History: Reports: Arthritis Skin Medical History: Denies: Eczema, Psoriasis Psychiatric Medical History: Reports: Depression Past Surgical History Past Surgical History: Reports: Adenoidectomy, Tubal Ligation Social History Information Source: Patient Lives with: Spouse/Significant other Smoking Status: Current Every Day Smoker Frequency of Alcohol Use: Rare Hx Recreational Drug Use: Yes Drugs: Marijuana Hx Prescription Drug Abuse: No Family History Family History: Reviewed & Not Pertinent Parental Family History Reviewed: Yes Children Family History Reviewed: Yes Sibling(s) Family History Reviewed.: Yes Medication/Allergy Home Medications: Albuterol Sulfate [Ventolin Hfa] 2 puff IH Q4HP PRN 09/16/16 Amlodipine Besylate [Norvasc 10 mg Tablet] 5 mg PO DAILY 09/16/16 Aspirin [Aspirin EC] 81 mg PO DAILY 09/16/16 Carvedilol Phosphate [Coreg Cr] 80 mg PO DAILY 09/16/16 Coconut Oil 1 cap PO DAILY 09/16/16 Doxycycline Hyclate 100 mg PO BID 09/16/16 Furosemide [Lasix 20 mg Tablet] 20 mg PO DAILY 09/16/16 Lisinopril [Prinivil 10 mg Tablet] 10 mg PO Q12 09/16/16 Mirtazapine [Remeron] 45 mg PO QHS 09/16/16 [place]-3S/Dha/Epa/Fish Oil [Fish Oil 1,200 mg Softgel] 3 cap PO Q12 09/16/16 Potassium Chloride 20 meq PO DAILY 09/16/16 Prednisone 10 mg PO DAILY 09/16/16 Rosuvastatin Calcium 10 mg PO DAILY 09/16/16 Allergies/Adverse Reactions: No Known Allergies Allergy (Verified 09/16/16 11:16) Review of Systems All systems: reviewed and no additional remarkable complaints except as stated Physical Exam Vital Signs: Temp Pulse Resp BP Pulse Ox 98.3 F 80 29 H 91/56 L 90 L 09/16/16 11:23 09/16/16 11:23 09/16/16 17:01 09/16/16 17:01 09/16/16 17:01 General appearance: PRESENT: severe distress Head exam: PRESENT: atraumatic Eye exam: PRESENT: conjunctival injection Neck exam: PRESENT: full ROM. ABSENT: JVD Respiratory exam: PRESENT: accessory muscle use, decreased breath sounds, prolonged expiratory phas, wheezes Cardiovascular exam: PRESENT: +S1, +S2 Pulses: PRESENT: +1 pedal pulses bilateral Vascular exam: PRESENT: normal capillary refill GI/Abdominal exam: PRESENT: normal bowel sounds, soft Extremities exam: PRESENT: full ROM Musculoskeletal exam: PRESENT: ambulatory, full ROM Neurological exam: PRESENT: alert, oriented to time, CN II-XII grossly intact Results Impressions: Chest X-Ray 09/16/16 11:50 IMPRESSION: New airspace disease in the medial right upper lobe and left midlung Bibasilar bandlike atelectasis. Chest/Abdomen CTA 09/16/16 12:06 IMPRESSION: Multifocal airspace disease worrisome for multifocal pneumonia. No CT angio evidence of acute pulmonary emboli or thoracic aortic dissection Assessment & Plan - Diagnosis (1) Acute respiratory failure with hypoxia Is this a current diagnosis for this admission?: YesPlan: We'll continue with IV antibiotics, steroids, inhalers and nebulization treatments and supplemental oxygen (2) Bilateral pneumonia Qualifiers: Pneumonia type: due to unspecified organism Lung location: unspecified part of lung Qualified Code(s): J18.9 - Pneumonia, unspecified organism Is this a current diagnosis for this admission?: YesPlan: Continue antibiotics awaiting culture (3) Leukocytosis Qualifiers: Leukocytosis type: other Qualified Code(s): D72.828 - Other elevated white blood cell count Is this a current diagnosis for this admission?: YesPlan: We'll continue with antibiotics. The possibility of leukocytosis been partly related to steroids has been considered (4) Tobacco dependency Is this a current diagnosis for this admission?: YesPlan: We'll attempt smoking cessation (5) Coronary artery disease Qualifiers: Coronary Disease-Associated Artery/Lesion type: [place] artery Is this a current diagnosis for this admission?: YesPlan: We'll continue with current medications (6) CHF (congestive heart failure) Qualifiers: Congestive heart failure type: unspecified congestive heart failure type Congestive heart failure chronicity: chronic Qualified Code(s): I50.9 - Heart failure, unspecified Is this a current diagnosis for this admission?: YesPlan: Would avoid excessive fluid overload because of history of cardiomyopathy and congestive heart failure - Inpatient Certification Medical Necessity: Failure to Improve With Outpatient Therapy, Need for IV Antibiotics
[2016-09-16] MEDS ORDERED: METHYLPREDNISOLONE INJ 40 MG/1 ML SDV IV SCH (18:00)
[2016-09-16] MEDS ORDERED: ENOXAPARIN SODIUM INJ 40 MG/0.4 ML DISP.SYRIN SUBCUT ONE (20:00)
[2016-09-16] MEDS: IPRATROPIUM/ALBUTEROL 0.5-2.5 MG/3 ML AMPUL NEB SCH (20:00)
[2016-09-16] MEDS: METHYLPREDNISOLONE INJ 125 MG/2 ML SDV IV SCH (21:42)
[2016-09-16] MEDS ORDERED: (PENDING PHARMACY ID) (Mirtazapine [Remeron] 45 MG) PO SCH (22:00)
[2016-09-16] MEDS: ATORVASTATIN CALCIUM 20 MG TABLET PO SCH (23:04)
[2016-09-16] MEDS: GUAIFENESIN 600 MG TABLET.SA PO SCH (23:04)
[2016-09-16] MEDS: MIRTAZAPINE 15 MG TABLET PO SCH (23:05)
[2016-09-16] MEDS: LISINOPRIL 10 MG TABLET PO SCH (23:06)
[2016-09-16] MEDS: CARVEDILOL 12.5 MG TABLET PO SCH (23:07)
[2016-09-17] MEDS: METHYLPREDNISOLONE INJ 125 MG/2 ML SDV IV SCH ×4 (02:31→20:42)
[2016-09-17 05:09] LABS: ANION GAP 12 (5-19); BLOOD UREA NITROGEN 11 mg/dL (7-20); CARBON DIOXIDE 26 mmol/L (22-30); CHLORIDE 107 mmol/L (98-107); CREATININE RESULT 0.68 mg/dL (0.52-1.25); GLUCOSE 171 mg/dL (75-110); SODIUM 144.5 mmol/L (137-145)
[2016-09-17] MEDS: LANSOPRAZOLE 30 MG TAB.RAP.DR PO SCH (05:16)
[2016-09-17 05:24] LABS: HEMATOCRIT 41.7 % (36.0-47.0); HEMOGLOBIN 13.8 g/dL (12.0-15.5); HGB HCT DIFFERENCE -0.3; MEAN CORPUSCULAR HEMOGLOBIN 32.4 pg (27.0-33.4); MEAN CORPUSCULAR VOLUME 98 fl (80-97); RED BLOOD COUNT 4.24 10^6/uL (3.72-5.28); RED CELL DISTRIBUTION WIDTH 13.9 % (11.5-14.0); WHITE BLOOD COUNT 19.4 10^3/uL (4.0-10.5)
[2016-09-17 05:34] LABS: BAND NEUTROPHILS % (MANUAL) 1 % (3-5); BASOPHILS % (MANUAL) 0 % (0-2); EOSINOPHILS % (MANUAL) 0 % (0-6); LYMPHOCYTES % (MANUAL) 4 % (13-45); TOTAL CELLS COUNTED 100
[2016-09-17 05:35] LABS: OVALOCYTES SLIGHT; POIKILOCYTOSIS SLIGHT; TEAR DROP CELLS SLIGHT; TOXIC GRANULATION SLIGHT; TOXIC VACUOLATION PRESENT
[2016-09-17] MEDS: ENOXAPARIN SODIUM INJ 40 MG/0.4 ML DISP.SYRIN SUBCUT SCH (07:50)
--- NOTE | 2016-09-17 07:56 | EKG REPORT ---
SEVERITY:- ABNORMAL ECG - SINUS RHYTHM LEFT ATRIAL ABNORMALITY NONSPECIFIC IVCD WITH LAD ANTERIOR INFARCT, AGE INDETERMINATE VS LBBB : Confirmed by: Rosaline Chavez 17-Sep-2016 07:55:28
[2016-09-17] MEDS: IPRATROPIUM/ALBUTEROL 0.5-2.5 MG/3 ML AMPUL NEB SCH ×2 (07:58→20:14)
--- NOTE | 2016-09-17 09:01 | PDOC PROGRESS REPORT ---
Subjective Progress Note for:: 09/17/16 Subjective:: The patient states to feel slightly better. She does still have episodes of dyspnea with cough. She states that the nebulization treatments help. Physical Exam Vital Signs: Temp Pulse Resp BP Pulse Ox 97.1 F 77 19 115/62 87 L 09/17/16 07:48 09/17/16 07:48 09/17/16 07:48 09/17/16 07:48 09/17/16 07:48 Intake & Output 09/16/16 09/17/16 09/18/16 06:59 06:59 06:59 Intake Total 1255 Balance 1255 Weight 67.3 kg General appearance: PRESENT: mild distress Head exam: PRESENT: atraumatic Eye exam: PRESENT: conjunctival injection Neck exam: ABSENT: carotid bruit, JVD Respiratory exam: PRESENT: accessory muscle use, decreased breath sounds, wheezes Cardiovascular exam: PRESENT: +S1, +S2 Pulses: PRESENT: +1 pedal pulses bilateral GI/Abdominal exam: PRESENT: normal bowel sounds, soft Results Laboratory Results: 09/17/16 04:06 09/17/16 04:06 09/17/16 09/17/16 04:06 04:06 WBC 19.4 H RBC 4.24 Hgb 13.8 Hct 41.7 MCV 98 H MCH 32.4 MCHC 33.0 RDW 13.9 Plt Count 150 Seg Neutrophils % Not Reportable Lymphocytes % Not Reportable Monocytes % Not Reportable Eosinophils % Not Reportable Basophils % Not Reportable Absolute Neutrophils Not Reportable Absolute Lymphocytes Not Reportable Absolute Monocytes Not Reportable Absolute Eosinophils Not Reportable Absolute Basophils Not Reportable Sodium 144.5 Potassium 4.0 Chloride 107 Carbon Dioxide 26 Anion Gap 12 BUN 11 Creatinine 0.68 Est GFR ( Amer) > 60 Est GFR (Non-Af Amer) > 60 Glucose 171 H Calcium 10.0 Impressions: Chest X-Ray 09/16/16 11:50 IMPRESSION: New airspace disease in the medial right upper lobe and left midlung Bibasilar bandlike atelectasis. Chest/Abdomen CTA 09/16/16 12:06 IMPRESSION: Multifocal airspace disease worrisome for multifocal pneumonia. No CT angio evidence of acute pulmonary emboli or thoracic aortic dissection Assessment & Plan - Diagnosis (1) Acute respiratory failure with hypoxia Is this a current diagnosis for this admission?: YesPlan: We'll continue with IV antibiotics, steroids, inhalers and nebulization treatments and supplemental oxygen She did have an episode of exacerbation and needed to be treated with nebulization. We'll continue with steroid neb treatments and antibiotics (2) Bilateral pneumonia Qualifiers: Pneumonia type: due to unspecified organism Lung location: unspecified part of lung Qualified Code(s): J18.9 - Pneumonia, unspecified organism Is this a current diagnosis for this admission?: YesPlan: Continue IV antibiotics (3) Leukocytosis Qualifiers: Leukocytosis type: other Qualified Code(s): D72.828 - Other elevated white blood cell count Is this a current diagnosis for this admission?: YesPlan: We'll continue with antibiotics. The possibility of leukocytosis been partly related to steroids has been considered (4) Tobacco dependency Is this a current diagnosis for this admission?: Yes (5) Coronary artery disease Qualifiers: Coronary Disease-Associated Artery/Lesion type: [place] artery Is this a current diagnosis for this admission?: YesPlan: Continue present medications and consult with cardiology (6) CHF (congestive heart failure) Qualifiers: Congestive heart failure type: unspecified congestive heart failure type Congestive heart failure chronicity: chronic Qualified Code(s): I50.9 - Heart failure, unspecified Is this a current diagnosis for this admission?: YesPlan: Stable continue current treatment
[2016-09-17] MEDS ORDERED: (PENDING PHARMACY ID) (Rosuvastatin Calcium [Rosuvastatin Calcium] 10 MG) PO SCH (10:00)
[2016-09-17] MEDS ORDERED: AMLODIPINE BESYLATE 10 MG TABLET PO SCH (10:00)
[2016-09-17] MEDS ORDERED: CARVEDILOL PHOSPHATE 80 MG PO SCH (10:00)
[2016-09-17] MEDS: CARVEDILOL 12.5 MG TABLET PO SCH ×2 (10:06→21:22)
[2016-09-17] MEDS: POTASSIUM CHLORIDE 10 MEQ TABLET.SA PO SCH (10:06)
[2016-09-17] MEDS: LISINOPRIL 10 MG TABLET PO SCH ×2 (10:07→21:22)
[2016-09-17] MEDS: GUAIFENESIN 600 MG TABLET.SA PO SCH ×2 (10:08→21:22)
[2016-09-17] MEDS: ASPIRIN 81 MG TABLET, ENT COATED PO SCH (10:08)
[2016-09-17] MEDS: FUROSEMIDE 20 MG TABLET PO SCH (10:08)
[2016-09-17] MEDS: CEFTRIAXONE 1 GM/D5W RTU 50 ML IV SCH (10:38)
[2016-09-17] MEDS: AMLODIPINE BESYLATE 5 MG TABLET PO SCH (10:53)
[2016-09-17] MEDS: LEVOFLOXACIN 500 MG/D5W RTU 100 ML IV SCH (11:46)
[2016-09-17] MEDS: IPRATROPIUM/ALBUTEROL 0.5-2.5 MG/3 ML AMPUL NEB PRN (13:43)
[2016-09-17] MEDS: LOPERAMIDE HCL 2 MG CAPSULE PO PRN (17:21)
--- NOTE | 2016-09-17 21:13 | CONSULTATION REPORT E ---
Consultation Report NAME: ISRA PARRA : 1950 AGE: 66Y DATE: 09/17/2016 302 A TO: MICHELINE SANCHES M.D. FROM: ROMAINE JOHNSON M.D. Requesting Physician REASON FOR CONSULTATION: Patient with COPD exacerbation and multifocal pneumonia, history of congestive heart failure in the past and history of coronary artery disease. HISTORY OF PRESENT ILLNESS: Patient is a 66-year-old female with known history of hypertension, history of prior cardiomyopathy with ejection fraction improved to 55% in 2014 and history of chronic left bundle branch block pattern and history of hypertension, hyperlipidemia, and COPD. Was admitted with a 2-day history of shortness of breath and wheezing on 09/13/2016. She was discharged home on 09/14/2016 with a diagnosis of acute exacerbation of COPD, and she was placed on nebulizers. The patient went home and felt very short of breath, and when she came in, her O2 saturations were 83%, and the patient was wheezing. She also has a cough productive of whitish sputum. There is no chest pain or discomfort. There are no palpitations. There is no PND. There is orthopnea. There is no leg edema. There are no TIA or CVA symptoms. The patient denies any fever, chills, or rigors. PAST MEDICAL HISTORY: Past medical history is positive for history of cardiomyopathy in the past, and ejection fraction improved to 55% in 2014. She has a history of DVT in the right leg in 2009 and was on Coumadin for some time, and this was stopped later on. She has a history of hypertension, hyperlipidemia, left bundle branch block pattern, cataracts, history of GI bleed, irritable bowel syndrome, arthritis, depression, and also has COPD, and the patient is a smoker. There is no history of diabetes mellitus, no history of TIA or CVA. There is no history of chronic kidney disease. She does have arthritis but no collagen vascular disease. There is no history of chronic renal failure. PAST SURGICAL HISTORY: She has had appendectomy, bilateral tubal ligation, colonoscopy, exploratory laparotomy. FAMILY HISTORY: Family history is positive for cancer. SOCIAL HISTORY: The patient is a smoker; she had quit smoking in 2009 but again started. There is no history of ETOH abuse. ALLERGIES: The patient is allergic to SULFA. MEDICATIONS: 1. Acetaminophen 650 mg p.o. q.4 hours p.r.n. 2. Amlodipine 5 mg p.o. daily. 3. Aspirin 81 mg p.o. daily. 4. Atorvastatin 20 mg p.o. at bedtime. 5. Coreg 25 mg p.o. q.12 hours. 6. Lovenox 40 mg subcutaneously q.a.m. 7. She is on Lasix 20 mg p.o. daily. 8. She is on Mucinex 600 mg p.o. q.12 hours. 9. She is on ceftriaxone 1 g IV daily. 10. She is on Levaquin 500 mg IV daily. 11. She is on ipratropium/albuterol 3 mL nebulizer treatment q.4 hours p.r.n. and ipratropium/albuterol 3 mL nebulizer treatment q.4 hours while awake. 12. She is on lansoprazole 30 mg p.o. q.6 a.m. 13. She is on lisinopril 10 mg p.o. q.12 hours. 14. She is on loperamide 2 mg p.o. q.4 hours p.r.n. 15. She is on methylprednisolone 60 mg IV q.6 hours. 16. She is on *------* 45 mg p.o. at bedtime. 17. She is on potassium 20 mEq p.o. daily. CODE STATUS: This patient is a FULL CODE. Her surrogate healthcare decision maker is Mr. Anil Santacruz. REVIEW OF SYSTEMS: CONSTITUTIONAL: Denies any fevers, chills, or rigors. Complains of generalized fatigue and weakness. HEAD: Denies headaches or head injury. EYES: No history of amblyopia or diplopia. No history of amaurosis fugax. EARS: No history of tinnitus. No history of hearing loss. No history of recurrent ear infections. NOSE: No history of hay fever. No history of nosebleeds. No history of nasal polyps. MOUTH: No altered taste sensation. No ulcers in the mouth. No bleeding from the gums. THROAT: No odynophagia or dysphagia. No history of recurrent sore throats. SKIN: There is no skin rash. There is pruritus. There is no yellowish discoloration of the skin. There is no psoriasis. NECK: There is no painful swelling in the neck or painless swelling in the neck. There is no goiter. LUNGS: History of COPD. The patient has restarted smoking. The patient was admitted 09/13/2016 with acute respiratory failure with hypoxemia due to acute exacerbation of COPD. The patient at present is admitted with increasing shortness of breath, and O2 saturations were 83% on room air and has been diagnosed with multifocal pneumonia. There is no history of sleep apnea. No history of pulmonary embolism. No history of pleuritic chest pain. No history of hemoptysis. CARDIAC: History of hypertension. Past history of cardiomyopathy. Left ventricular ejection fraction in 2014 was normal at 55%. There is no history of coronary artery disease. No anginal symptoms. No PND or leg edema, but the patient has a history of recent orthopnea due to acute exacerbation of COPD. There are no palpitations or syncope. There is a past history of congestive heart failure. She also has chronic left bundle branch block pattern. GASTROINTESTINAL: Denies any abdominal pain. She has a past history of GI bleed. She has a history of irritable bowel syndrome. There is no recent recurrence of GI bleed. No fatty food intolerance. No history of abdominal pain. No history of hepatitis. No history of jaundice. MUSCULOSKELETAL: History of arthritis but no history of collagen vascular disease. ENDOCRINE: No history of diabetes mellitus. No history of thyroid disorder. PSYCHIATRIC: She has a history of depression but no suicidal ideation. No history of anxiety. CENTRAL NERVOUS SYSTEM: No history of TIA or CVA. No history of gait imbalance. No history of headaches, migraines, or seizures. RENAL: No history of chronic kidney disease. No history of symptoms of UTI. No history of hematuria, polyuria, or dysuria. VASCULAR: No history of calf or buttock claudication. Past history of DVT on the right leg as mentioned earlier. No history of pulmonary embolism. HEMATOLOGIC: No history of bleeding diathesis. No history of clotting disorder. The patient has no anemia. PHYSICAL EXAMINATION: GENERAL: On examination, the patient is well built and well nourished in no acute distress. VITAL SIGNS: She is afebrile with temperature of 97.1 degrees Fahrenheit orally. Pulse is 77 beats per minute. Blood pressure 115/62. Respirations of 19 per minute. O2 saturations are 87% on 6 L and subsequently. HEENT: Head is atraumatic, normocephalic. Eyes: Pupils are equal, round, regular, reactive to light and accommodation. Extraocular movements are normal. There is no conjunctival pallor. There is no scleral icterus. Ears: Tympanic membranes are intact. External auditory canals are clear. Nose: There is no deviated nasal septum. There is no inflammation of the nasal mucous membranes. Mouth: Mucous membranes of the mouth are moist. Tongue is moist. There are no ulcers. There is no bleeding from the gums. Throat: There is no redness of the oropharynx. There are no exudates. SKIN: There are no skin rashes. There is no petechiae or ecchymosis. There are no skin lesions. NECK: Supple. There is no JVD. Carotids are equal; there is no bruit. There is no lymphadenopathy. There is no goiter. Trachea is central. LUNGS: There is diminished air entry and prolonged expiration with scattered rhonchi and wheezing. There are dry crackles in the right upper lobe area and in the left mid-zone area suggestive of pneumonia. CARDIOVASCULAR: S1, S2 are heard. There is no S3 gallop. There is no S4 gallop. There is systolic murmur of mitral regurgitation present within the apex with radiation to the left axilla. There is systolic murmur in the aortic area without evidence of any aortic stenosis or aortic regurgitation. There is no rub. ABDOMEN: Soft, nontender. There is no hepatosplenomegaly. Bowel sounds are well heard. EXTREMITIES: Femorals are diminished. There are no femoral bruits. Leg pulses are diminished. There is no pedal edema. There is no DVT or cellulitis. There is no calf tenderness. There is no cyanosis or clubbing. CENTRAL NERVOUS SYSTEM: The patient is conscious, awake, alert, oriented x3 with no focal deficits. PSYCHIATRIC: The patient's judgement and insight are intact. Her affect is normal. DIAGNOSTIC TESTS: The patient's chest x-ray shows a patchy infiltrate in the right upper lobe and also patchy infiltrate in the left mid lung zone suggestive of multifocal pneumonia. The patient's chest and abdomen CTA shows multifocal airspace disease suggestive of multifocal pneumonia. No CT angiographic evidence of acute pulmonary emboli or thoracic aortic dissection. The patient's EKG shows sinus rhythm, non-specific IVCD with *------* and atypical left bundle branch block pattern. Possible left atrial abnormality. The patient's white count is 19,400; hemoglobin is 13.8; hematocrit is 41.7; platelet count is 150,000. The patient's ABG showed a pH of 7.46; pCO2 is 35.2; pO2 is low at 48.9, and her O2 saturation is 86.8%; this is on an FiO2 of 5 L. The patient's cardiac enzymes have been negative x1 yesterday. The patient's sodium is 144.5, potassium 4.0, chloride 107, CO2 26. The patient's BUN is 11, creatinine 0.68. GFR is greater than 60. Her glucose is 171. Her calcium is 10. The patient's liver function tests are normal except for mildly elevated AST of 40, the normal limit being 36. IMPRESSION: 1. Multifocal pneumonia with organism unspecified. We will continue antibiotics. 2. Respiratory failure with hypoxemia secondary to chronic obstructive pulmonary disease and pneumonia. 3. Chronic obstructive pulmonary disease with acute exacerbation. Continue nebulizer treatments. Continue steroids. 4. Hypertension. Blood pressure well controlled. 5. Past history of cardiomyopathy with last ejection fraction in 2014 being normal. There is no evidence of congestive heart failure at present. 6. Hyperlipidemia. 7. Depression. RECOMMENDATIONS: Continue current treatment. At present, the patient's cardiac status is stable. We will follow with you. Continue her lisinopril, Coreg, and aspirin. Continue atorvastatin; it is a small dose. Continue all her blood pressure medications including amlodipine and continue lisinopril. Continue Lasix 20 mg p.o. daily along with potassium replacement. TIME SPENT: Note 40 minutes spent on this patient with more than 50% of the time spent in direct patient care. Also, reviewed the patient's medications and also reviewed her old records and the office chart and discussed with the patient and also discussed with Dr. Johnson, the attending on the case. We will follow with you. DICTATING PHYSICIAN: MICHELINE SANCHES M.D. [id number] PHY#: [id number] ID: [id number] JOB#: [id number] ACCT: [id number] cc:MICHELINE SANCHES M.D. >
[2016-09-17] MEDS: MIRTAZAPINE 15 MG TABLET PO SCH (21:21)
[2016-09-17] MEDS: ATORVASTATIN CALCIUM 20 MG TABLET PO SCH (21:22)
[2016-09-18] MEDS: METHYLPREDNISOLONE INJ 125 MG/2 ML SDV IV SCH (03:33)
[2016-09-18 04:15] LABS: HEMATOCRIT 40.1 % (36.0-47.0); HEMOGLOBIN 13.3 g/dL (12.0-15.5); HGB HCT DIFFERENCE -0.2; MEAN CORPUSCULAR HEMOGLOBIN 32.5 pg (27.0-33.4); MEAN CORPUSCULAR HGB CONC 33.2 g/dL (32.0-36.0); MEAN CORPUSCULAR VOLUME 98 fl (80-97); RED BLOOD COUNT 4.09 10^6/uL (3.72-5.28); WHITE BLOOD COUNT 20.4 10^3/uL (4.0-10.5)
[2016-09-18 04:40] LABS: ANION GAP 10 (5-19); BLOOD UREA NITROGEN 20 mg/dL (7-20); CALCIUM 9.7 mg/dL (8.4-10.2); CARBON DIOXIDE 28 mmol/L (22-30); CHLORIDE 105 mmol/L (98-107); CREATININE RESULT 0.65 mg/dL (0.52-1.25); GLUCOSE 164 mg/dL (75-110); POTASSIUM 4.2 mmol/L (3.6-5.0); SODIUM 142.9 mmol/L (137-145)
[2016-09-18 04:59] LABS: ANISOCYTOSIS SLIGHT; BASOPHILS % (MANUAL) 0 % (0-2); EOSINOPHILS % (MANUAL) 0 % (0-6); LYMPHOCYTES % (MANUAL) 4 % (13-45); TOTAL CELLS COUNTED 100; TOXIC GRANULATION SLIGHT
[2016-09-18] MEDS: LANSOPRAZOLE 30 MG TAB.RAP.DR PO SCH (05:18)
[2016-09-18] MEDS: IPRATROPIUM/ALBUTEROL 0.5-2.5 MG/3 ML AMPUL NEB SCH ×4 (07:46→19:45)
[2016-09-18] MEDS: ASPIRIN 81 MG TABLET, ENT COATED PO SCH (09:58)
[2016-09-18] MEDS: LISINOPRIL 10 MG TABLET PO SCH ×2 (09:58→21:34)
[2016-09-18] MEDS: AMLODIPINE BESYLATE 5 MG TABLET PO SCH (09:58)
[2016-09-18] MEDS: FUROSEMIDE 20 MG TABLET PO SCH (09:59)
[2016-09-18] MEDS: POTASSIUM CHLORIDE 10 MEQ TABLET.SA PO SCH (09:59)
[2016-09-18] MEDS: CARVEDILOL 12.5 MG TABLET PO SCH ×2 (10:00→21:35)
[2016-09-18] MEDS: GUAIFENESIN 600 MG TABLET.SA PO SCH ×2 (10:00→21:34)
[2016-09-18] MEDS: LEVOFLOXACIN 500 MG/D5W RTU 100 ML IV SCH (10:00)
[2016-09-18] MEDS: CEFTRIAXONE 1 GM/D5W RTU 50 ML IV SCH (10:01)
[2016-09-18] MEDS: ENOXAPARIN SODIUM INJ 40 MG/0.4 ML DISP.SYRIN SUBCUT SCH (10:02)
[2016-09-18] MEDS: PREDNISONE 20 MG TABLET PO SCH ×2 (10:03→17:31)
--- NOTE | 2016-09-18 10:15 | PDOC PROGRESS REPORT ---
Subjective Progress Note for:: 09/18/16 Subjective:: The patient states to feel slightly better. Her cough is becoming more productive. She is having trouble maintaining her O2 saturation. She feels much better with nebulization treatments. Physical Exam Vital Signs: Temp Pulse Resp BP Pulse Ox 97.7 F 70 20 125/62 92 09/18/16 07:27 09/18/16 07:27 09/18/16 07:27 09/18/16 07:27 09/18/16 07:27 Intake & Output 09/17/16 09/18/16 09/19/16 06:59 06:59 06:59 Intake Total 1255 2444 Output Total 500 Balance 1255 1944 Weight 67.3 kg 66.1 kg General appearance: PRESENT: mild distress Head exam: PRESENT: atraumatic Eye exam: PRESENT: conjunctival injection Neck exam: ABSENT: carotid bruit, JVD Respiratory exam: PRESENT: decreased breath sounds, wheezes Cardiovascular exam: PRESENT: +S1, +S2 Pulses: PRESENT: normal carotid pulses Vascular exam: PRESENT: normal capillary refill GI/Abdominal exam: PRESENT: normal bowel sounds, soft Extremities exam: PRESENT: full ROM Musculoskeletal exam: PRESENT: ambulatory Neurological exam: PRESENT: alert, oriented to time Results Laboratory Results: 09/18/16 03:33 09/18/16 03:33 09/18/16 09/18/16 03:33 03:33 WBC 20.4 H RBC 4.09 Hgb 13.3 Hct 40.1 MCV 98 H MCH 32.5 MCHC 33.2 RDW 14.0 Plt Count 171 Seg Neutrophils % Not Reportable Lymphocytes % Not Reportable Monocytes % Not Reportable Eosinophils % Not Reportable Basophils % Not Reportable Absolute Neutrophils Not Reportable Absolute Lymphocytes Not Reportable Absolute Monocytes Not Reportable Absolute Eosinophils Not Reportable Absolute Basophils Not Reportable Sodium 142.9 Potassium 4.2 Chloride 105 Carbon Dioxide 28 Anion Gap 10 BUN 20 Creatinine 0.65 Est GFR ( Amer) > 60 Est GFR (Non-Af Amer) > 60 Glucose 164 H Calcium 9.7 Impressions: Chest X-Ray 09/16/16 11:50 IMPRESSION: New airspace disease in the medial right upper lobe and left midlung Bibasilar bandlike atelectasis. Chest/Abdomen CTA 09/16/16 12:06 IMPRESSION: Multifocal airspace disease worrisome for multifocal pneumonia. No CT angio evidence of acute pulmonary emboli or thoracic aortic dissection Assessment & Plan - Diagnosis (1) Acute respiratory failure with hypoxia Plan: We'll continue with IV antibiotics, steroids, inhalers and nebulization treatments and supplemental oxygen She did have an episode of exacerbation and needed to be treated with nebulization. We'll continue with steroid neb treatments and antibiotics (2) Bilateral pneumonia Qualifiers: Pneumonia type: due to unspecified organism Lung location: unspecified part of lung Qualified Code(s): J18.9 - Pneumonia, unspecified organism Is this a current diagnosis for this admission?: YesPlan: Continue IV antibiotics (3) Leukocytosis Qualifiers: Leukocytosis type: other Qualified Code(s): D72.828 - Other elevated white blood cell count Is this a current diagnosis for this admission?: YesPlan: We'll continue with antibiotics. The possibility of leukocytosis been partly related to steroids has been considered (4) Tobacco dependency Is this a current diagnosis for this admission?: YesPlan: We'll attempt smoking cessation (5) Coronary artery disease Qualifiers: Coronary Disease-Associated Artery/Lesion type: [place] artery Is this a current diagnosis for this admission?: YesPlan: Continue present medications and consult with cardiology (6) CHF (congestive heart failure) Qualifiers: Congestive heart failure type: unspecified congestive heart failure type Congestive heart failure chronicity: chronic Qualified Code(s): I50.9 - Heart failure, unspecified Is this a current diagnosis for this admission?: YesPlan: Stable continue current treatment
--- NOTE | 2016-09-18 13:38 | PROGRESS NOTE E ---
Progress Note NAME: ISRA PARRA : 1950 AGE: 66Y DATE: 09/18/2016 ROOM: 302 SUBJECTIVE: The patient states she is slightly better and less short of breath but still does have some degree of shortness of breath with orthopnea. She still has cough and bringing up white sputum. There is no chest pain or discomfort. There is no palpitations. There is no PND. There is no leg edema. There is orthopnea. There is no arrhythmia seen on the monitor. The patient has no TIA or CVA symptoms. OBJECTIVE: GENERAL: On examination, the patient is well built and well nourished in no acute distress although, she has shortness of breath. VITAL SIGNS: She is afebrile with a temperature of 97.7 degrees Fahrenheit, pulse of 72 beats per minute, blood pressure is 110/58, respirations are 18 per minute, O2 saturations 94% on 1.5 on *------*. HEAD: Atraumatic, normocephalic. EYES: Pupils are equal, round, regular, and reactive to light and accommodation. Extraocular movements are normal. There is conjunctival pallor. There is no scleral icterus. EARS, NOSE, THROAT: Negative. NECK: Supple. There is no JVD. Carotids are equal. There is no bruit. There is no lymphadenopathy. There is no goiter. Trachea is central. LUNGS: Show diminished air entry and prolonged expiration with scattered rhonchi and wheezing less than yesterday. There are a few dry crackles of the right upper lobe area and in the left midsternal area suggestive of pneumonia in the lungs. HEART: S1 and S2 are heard. There is no S3 gallop. There is no S4 gallop. There is a systolic murmur of mitral regurgitation present heard in the apex with radiation to the left axilla. There is a systolic murmur in the aortic area without evidence of any aortic stenosis or aortic regurgitation. There is no rub. ABDOMEN: Soft, nontender. There is no hepatosplenomegaly. Bowel sounds are well heard. EXTREMITIES: Femorals are diminished. There are no femoral bruits. Leg pulses are diminished. There is no pedal edema. There is no DVT or cellulitis. There is no calf tenderness. There is no cyanosis or clubbing. CENTRAL NERVOUS SYSTEM: The patient is conscious, awake, alert, oriented x3 with no focal deficit. PSYCHIATRIC: The patient's judgment and insight are intact. Her affect is normal. LABORATORY DATA AND X-RAYS The patient's chest x-ray done yesterday shows multifocal pneumonia. The patient's white count is 20,400; hemoglobin 13.3; .9; hematocrit is 40.1; the patient's platelet count is 171,000. The patient's sodium is 142.9, potassium 4.2, chloride 105, CO2 78, patient's BUN is 20, creatinine 0.65, GFR is greater than 60, patient's glucose is 164, her calcium is 9.7. ASSESSMENT: 1. Multifocal pneumonia with organism *------*. Continue antibiotics. 2. Respiratory failure with hypoxemia secondary to chronic obstructive pulmonary disease with acute exacerbation and pneumonia. 3. Chronic obstructive pulmonary disease with acute exacerbation. Continue nebulizer. Continue steroids. 4. Hypertension. Blood pressure is well controlled. 5. Past history of cardiomyopathy with last ejection fraction in 2014 being normal. There is no evidence of congestive heart failure present. 6. Hyperlipidemia. 7. Depression. RECOMMENDATIONS: Continue the patient's respiratory treatments along with steroids and also antibiotics. Continue to monitor the patient's respiratory status. Continue aspirin. Continue Coreg and continue lisinopril. Patient's cardiac status is stable but will still follow until tomorrow. TIME SPENT: Thirty minutes spent on this patient with more than 50% of the time spent on direct patient care and also discussions with the patient and discussions with the hospitalist taking care of the patient. Will follow with you. Note that the patient's troponin I is all negative. DICTATING PHYSICIAN: MICHELINE SANCHES M.D. [id number] PHY#: [id number] ID: [id number] JOB#: [id number] ACCT: [id number] cc: >
[2016-09-18] MEDS: ACETYLCYSTEINE 20% SOLN 800 MG/4 ML VIAL.NEB NEB SCH (19:45)
[2016-09-18] MEDS: LOPERAMIDE HCL 2 MG CAPSULE PO PRN (21:34)
[2016-09-18] MEDS: ATORVASTATIN CALCIUM 20 MG TABLET PO SCH (21:34)
[2016-09-18] MEDS: MIRTAZAPINE 15 MG TABLET PO SCH (21:35)
[2016-09-19 04:46] LABS: ABSOLUTE BASOPHILS # (AUTO) 0.1 10^3/uL (0.0-0.2); ABSOLUTE LYMPHOCYTES (AUTO) 1.1 10^3/uL (0.5-4.7); ABSOLUTE MONOCYTES (AUTO) 1.2 10^3/uL (0.1-1.4); ABSOLUTE NEUT (AUTO) 15.7 10^3/uL (1.7-8.2); BASOPHILS % (AUTO) 0.4 % (0-2); HEMATOCRIT 38.5 % (36.0-47.0); HEMOGLOBIN 13.1 g/dL (12.0-15.5); HGB HCT DIFFERENCE 0.8; MEAN CORPUSCULAR HEMOGLOBIN 32.9 pg (27.0-33.4); MEAN CORPUSCULAR VOLUME 97 fl (80-97); MONOCYTES % (AUTO) 6.7 % (3-13); RED BLOOD COUNT 3.99 10^6/uL (3.72-5.28); RED CELL DISTRIBUTION WIDTH 14.1 % (11.5-14.0); SEGMENTED NEUTROPHILS % (AUTO) 86.9 % (42-78); WHITE BLOOD COUNT 18.1 10^3/uL (4.0-10.5)
[2016-09-19 05:08] LABS: ANION GAP 10 (5-19); BLOOD UREA NITROGEN 27 mg/dL (7-20); CARBON DIOXIDE 27 mmol/L (22-30); CHLORIDE 105 mmol/L (98-107); CREATININE RESULT 0.68 mg/dL (0.52-1.25); GLUCOSE 166 mg/dL (75-110); POTASSIUM 4.6 mmol/L (3.6-5.0); SODIUM 141.8 mmol/L (137-145)
[2016-09-19] MEDS: LANSOPRAZOLE 30 MG TAB.RAP.DR PO SCH (05:43)
[2016-09-19] MEDS: ACETYLCYSTEINE 20% SOLN 800 MG/4 ML VIAL.NEB NEB SCH ×2 (07:31→19:28)
[2016-09-19] MEDS: IPRATROPIUM/ALBUTEROL 0.5-2.5 MG/3 ML AMPUL NEB SCH ×4 (07:31→19:29)
[2016-09-19] MEDS: ENOXAPARIN SODIUM INJ 40 MG/0.4 ML DISP.SYRIN SUBCUT SCH (08:38)
[2016-09-19] MEDS: CEFTRIAXONE 1 GM/D5W RTU 50 ML IV SCH (09:40)
[2016-09-19] MEDS: POTASSIUM CHLORIDE 10 MEQ TABLET.SA PO SCH (09:40)
[2016-09-19] MEDS: CARVEDILOL 12.5 MG TABLET PO SCH ×2 (09:41→22:52)
[2016-09-19] MEDS: PREDNISONE 20 MG TABLET PO SCH ×2 (09:41→17:34)
[2016-09-19] MEDS: ASPIRIN 81 MG TABLET, ENT COATED PO SCH (09:43)
[2016-09-19] MEDS: GUAIFENESIN 600 MG TABLET.SA PO SCH ×2 (09:43→22:53)
[2016-09-19] MEDS: LISINOPRIL 10 MG TABLET PO SCH ×2 (09:43→22:54)
[2016-09-19] MEDS: AMLODIPINE BESYLATE 5 MG TABLET PO SCH (09:44)
[2016-09-19] MEDS: LEVOFLOXACIN 500 MG TABLET PO SCH (09:44)
[2016-09-19] MEDS: FUROSEMIDE 20 MG TABLET PO SCH (09:44)
--- NOTE | 2016-09-19 09:45 | PDOC PROGRESS REPORT ---
Subjective Progress Note for:: 09/19/16 Subjective:: Patient reports that her breathing continues to improve. Physical Exam Vital Signs: Temp Pulse Resp BP Pulse Ox 98.1 F 88 20 118/98 H 96 09/19/16 08:15 09/19/16 08:15 09/19/16 08:15 09/19/16 08:15 09/19/16 08:15 Intake & Output 09/18/16 09/19/16 09/20/16 06:59 06:59 06:59 Intake Total 2444 2990 Output Total 500 Balance 1944 2990 Weight 66.1 kg 68.2 kg General appearance: PRESENT: no acute distress Eye exam: PRESENT: conjunctiva pink Mouth exam: PRESENT: moist, tongue midline Neck exam: ABSENT: JVD Respiratory exam: PRESENT: wheezes - Scattered expiratory wheezing. Cardiovascular exam: PRESENT: RRR. ABSENT: diastolic murmur, rubs, systolic murmur GI/Abdominal exam: PRESENT: normal bowel sounds, soft. ABSENT: distended, guarding, mass, organolmegaly, rebound, tenderness Extremities exam: ABSENT: calf tenderness, clubbing, pedal edema Neurological exam: PRESENT: alert, awake, oriented to person, oriented to place , oriented to time, oriented to situation Psychiatric exam: PRESENT: appropriate affect Skin exam: PRESENT: dry, intact, warm. ABSENT: cyanosis, rash Results Laboratory Results: 09/19/16 04:15 09/19/16 04:15 09/19/16 09/19/16 04:15 04:15 WBC 18.1 H RBC 3.99 Hgb 13.1 Hct 38.5 MCV 97 MCH 32.9 MCHC 34.0 RDW 14.1 H Plt Count 198 Seg Neutrophils % 86.9 H Lymphocytes % 6.0 L Monocytes % 6.7 Eosinophils % 0.0 Basophils % 0.4 Absolute Neutrophils 15.7 H Absolute Lymphocytes 1.1 Absolute Monocytes 1.2 Absolute Eosinophils 0.0 Absolute Basophils 0.1 Sodium 141.8 Potassium 4.6 Chloride 105 Carbon Dioxide 27 Anion Gap 10 BUN 27 H Creatinine 0.68 Est GFR ( Amer) > 60 Est GFR (Non-Af Amer) > 60 Glucose 166 H Calcium 10.0 Impressions: Chest X-Ray 09/16/16 11:50 IMPRESSION: New airspace disease in the medial right upper lobe and left midlung Bibasilar bandlike atelectasis. Chest/Abdomen CTA 09/16/16 12:06 IMPRESSION: Multifocal airspace disease worrisome for multifocal pneumonia. No CT angio evidence of acute pulmonary emboli or thoracic aortic dissection Assessment & Plan - Diagnosis (1) Acute respiratory failure with hypoxia Is this a current diagnosis for this admission?: YesPlan: The patient has bilateral pneumonia as well as an acute COPD exacerbation as the cause for her failure. She is currently on BiPAP and is comfortable. (2) Bilateral pneumonia Qualifiers: Pneumonia type: due to unspecified organism Lung location: unspecified part of lung Qualified Code(s): J18.9 - Pneumonia, unspecified organism Is this a current diagnosis for this admission?: YesPlan: The patient is currently on Rocephin and Levaquin. She has one blood culture that is growing out gram-positive cocci. We'll continue with current antibiotic therapy in addition to the BiPAP and steroids. (3) COPD exacerbation Is this a current diagnosis for this admission?: YesPlan: Patient is on steroids and nebulizers and we will continue with those. (4) Coronary artery disease Qualifiers: Coronary Disease-Associated Artery/Lesion type: [place] artery Is this a current diagnosis for this admission?: YesPlan: She denies any chest pain. (5) CHF (congestive heart failure) Qualifiers: Congestive heart failure type: unspecified congestive heart failure type Congestive heart failure chronicity: chronic Qualified Code(s): I50.9 - Heart failure, unspecified Is this a current diagnosis for this admission?: YesPlan: Patient is euvolemic on exam today. (6) HTN (hypertension) Qualifiers: Hypertension type: essential hypertension Qualified Code(s): I10 - Essential (primary) hypertension Is this a current diagnosis for this admission?: YesPlan: Blood pressure is stable. (7) Hyperlipidemia Qualifiers: Hyperlipidemia type: unspecified Qualified Code(s): E78.5 - Hyperlipidemia, unspecified Is this a current diagnosis for this admission?: YesPlan: Continue with Lipitor. - Time Time Spent with patient: 25-34 minutes - Inpatient Certification Medical Necessity: Need for IV Antibiotics
--- NOTE | 2016-09-19 19:43 | PROGRESS NOTE E ---
Progress Note NAME: ISRA PARRA : 1950 AGE: 66Y DATE: 09/19/2016 ROOM: 302 SUBJECTIVE: The patient states she feels much better, but still the patient has rhonchi and wheezing. She still has some degree of orthopnea but no PND. She is coughing up yellow sputum. There is no chest pain or discomfort. There is no palpitation. There is no leg edema. There is orthopnea present, but there is no PND. There is no arrhythmia seen on the monitor. The patient has no TIA or CVA symptoms. OBJECTIVE: GENERAL: On examination, the patient is well built and well nourished and does not seem to be in any acute distress. VITAL SIGNS: She is afebrile with a temperature of 98.1 degrees Fahrenheit, pulse of 88 beats per minute, blood pressure is 119/98, respirations are 20 per minute, O2 saturations 96% of *------* L/minute by nasal CPAP. HEAD: Atraumatic, normocephalic. EYES: Pupils are equal, round, regular, and reactive to light and accommodation. Extraocular movements are normal. There is some conjunctival pallor. There is no scleral icterus. EARS, NOSE, THROAT: Negative. NECK: Supple. There is no JVD. Carotids are equal. There is no bruit. There is no lymphadenopathy. There is no goiter. Trachea is central. LUNGS: Show diminished air entry and prolonged expiration with scattered rhonchi and wheezing less than yesterday. There are a few dry crackles of the right upper lobe and the left mid lobe area of the lungs suggestive of pneumonia. HEART: S1 and S2 are heard. There is no S3 gallop. There is no S4 gallop. There is a systolic murmur in the left sternal border and the apex. There is no rub. ABDOMEN: Soft, nontender. There is no hepatosplenomegaly. Bowel sounds are well heard. There are no tender areas or masses. EXTREMITIES: Femorals are diminished. There are no femoral bruits. Leg pulses are diminished. There is no pedal edema. There is no DVT or cellulitis. There is no calf tenderness. CENTRAL NERVOUS SYSTEM: The patient is conscious, awake, alert, oriented x3 with no focal deficit. PSYCHIATRIC: The patient's judgment and insight are intact. Her affect is normal. LABORATORY DATA AND X-RAYS The patient's sodium is 141.8, potassium 4.6, chloride 105, CO2 27, patient's BUN is 27, creatinine 0.68, GFR is greater than 60, and glucose is 166, her calcium is 10. ASSESSMENT: 1. MULTIFOCAL PNEUMONIA WITH ORGANISM UNSPECIFIED. Continue antibiotics. 2. RESPIRATORY FAILURE WITH HYPOXEMIA SECONDARY TO CHRONIC OBSTRUCTIVE PULMONARY DISEASE WITH ACUTE EXACERBATION AND PNEUMONIA. 3. CHRONIC OBSTRUCTIVE PULMONARY DISEASE WITH ACUTE EXACERBATION OF PNEUMONIA. Continue respiratory treatments, steroids and antibiotics. 4. HYPERTENSION. Blood pressure is well controlled. 5. PAST HISTORY OF CARDIOMYOPATHY WITH LAST EJECTION FRACTION IN 2014 BEING NORMAL. There is no evidence of congestive heart failure present. 6. HYPERLIPIDEMIA. 7. DEPRESSION. 8. HISTORY OF CORONARY ARTERY DISEASE BUT NO SIGNIFICANT HISTORY OF CAD AND NO ANGINAL SYMPTOMS THIS ADMISSION. RECOMMENDATIONS: Continue the patient's respiratory treatments along with steroids and also antibiotics. Continue to monitor the patient's respiratory status. Continue aspirin. Continue Coreg and continue lisinopril. Patient's cardiac status is stable and will sign off the case. Call me if my assistance is needed. TIME SPENT: Thirty minutes spent on this patient with more than 50% of the time spent on direct patient care and also discussions with the patient and discussions with the hospitalist taking care of the patient. Will follow with you. Note that the patient's troponin I's were all negative. Note that the patient is a FULL CODE and her significant other is her surrogate healthcare decision maker. DICTATING PHYSICIAN: MICHELINE SANCHES M.D. [id number] NIKKIE#: [id number] ID: [id number] JOB#: [id number] ACCT: [id number] cc: >
[2016-09-19] MEDS: ATORVASTATIN CALCIUM 20 MG TABLET PO SCH (22:52)
[2016-09-19] MEDS: MIRTAZAPINE 15 MG TABLET PO SCH (22:53)
[2016-09-20 04:52] LABS: ABSOLUTE MONOCYTES (AUTO) 0.8 10^3/uL (0.1-1.4); ABSOLUTE NEUT (AUTO) 12.6 10^3/uL (1.7-8.2); BASOPHILS % (AUTO) 0.3 % (0-2); EOSINOPHILS % (AUTO) 0.3 % (0-6); HEMATOCRIT 39.9 % (36.0-47.0); HEMOGLOBIN 12.9 g/dL (12.0-15.5); HGB HCT DIFFERENCE -1.2; LYMPHOCYTES % (AUTO) 7.2 % (13-45); MEAN CORPUSCULAR HEMOGLOBIN 31.8 pg (27.0-33.4); MEAN CORPUSCULAR HGB CONC 32.3 g/dL (32.0-36.0); MEAN CORPUSCULAR VOLUME 98 fl (80-97); MONOCYTES % (AUTO) 5.5 % (3-13); RED BLOOD COUNT 4.06 10^6/uL (3.72-5.28); SEGMENTED NEUTROPHILS % (AUTO) 86.7 % (42-78); WHITE BLOOD COUNT 14.6 10^3/uL (4.0-10.5)
[2016-09-20 05:14] LABS: ANION GAP 8 (5-19); BLOOD UREA NITROGEN 24 mg/dL (7-20); CARBON DIOXIDE 30 mmol/L (22-30); CHLORIDE 105 mmol/L (98-107); CREATININE RESULT 0.65 mg/dL (0.52-1.25); GLUCOSE 141 mg/dL (75-110); POTASSIUM 4.5 mmol/L (3.6-5.0); SODIUM 143.1 mmol/L (137-145)
[2016-09-20] MEDS: LANSOPRAZOLE 30 MG TAB.RAP.DR PO SCH (06:08)
[2016-09-20] MEDS: ACETYLCYSTEINE 20% SOLN 800 MG/4 ML VIAL.NEB NEB SCH ×2 (07:59→20:08)
[2016-09-20] MEDS: IPRATROPIUM/ALBUTEROL 0.5-2.5 MG/3 ML AMPUL NEB PRN (07:59)
[2016-09-20] MEDS: IPRATROPIUM/ALBUTEROL 0.5-2.5 MG/3 ML AMPUL NEB SCH ×4 (08:35→20:08)
[2016-09-20] MEDS: LOPERAMIDE HCL 2 MG CAPSULE PO PRN (09:12)
[2016-09-20] MEDS: ENOXAPARIN SODIUM INJ 40 MG/0.4 ML DISP.SYRIN SUBCUT SCH (09:47)
[2016-09-20] MEDS: POTASSIUM CHLORIDE 10 MEQ TABLET.SA PO SCH (09:52)
[2016-09-20] MEDS: PREDNISONE 20 MG TABLET PO SCH ×2 (09:53→17:43)
[2016-09-20] MEDS: LEVOFLOXACIN 500 MG TABLET PO SCH (09:53)
[2016-09-20] MEDS: GUAIFENESIN 600 MG TABLET.SA PO SCH ×2 (09:53→21:48)
[2016-09-20] MEDS: FUROSEMIDE 20 MG TABLET PO SCH (09:54)
[2016-09-20] MEDS: ASPIRIN 81 MG TABLET, ENT COATED PO SCH (09:54)
[2016-09-20] MEDS: LISINOPRIL 10 MG TABLET PO SCH ×2 (09:54→21:48)
[2016-09-20] MEDS: CARVEDILOL 12.5 MG TABLET PO SCH ×2 (09:55→21:47)
[2016-09-20] MEDS: AMLODIPINE BESYLATE 5 MG TABLET PO SCH (09:55)
[2016-09-20] MEDS: CEFTRIAXONE 1 GM/D5W RTU 50 ML IV SCH (09:56)
--- NOTE | 2016-09-20 10:22 | PDOC PROGRESS REPORT ---
Subjective Progress Note for:: 09/20/16 Subjective:: Patient reports that her breathing continues to improve. Physical Exam Vital Signs: Temp Pulse Resp BP Pulse Ox 98.3 F 80 20 126/56 H 93 09/20/16 09:30 09/20/16 09:30 09/20/16 09:30 09/20/16 09:30 09/20/16 09:30 Intake & Output 09/19/16 09/20/16 09/21/16 06:59 06:59 06:59 Intake Total 2990 1821 Output Total 1225 Balance 2990 596 Weight 68.2 kg 67.4 kg General appearance: PRESENT: no acute distress Eye exam: PRESENT: conjunctiva pink Mouth exam: PRESENT: moist, tongue midline Neck exam: ABSENT: JVD Respiratory exam: PRESENT: rhonchi - Coarse rhonchi bilaterally with some expiratory wheezes. Cardiovascular exam: PRESENT: RRR. ABSENT: diastolic murmur, rubs, systolic murmur GI/Abdominal exam: PRESENT: normal bowel sounds, soft. ABSENT: distended, guarding, mass, organolmegaly, rebound, tenderness Extremities exam: ABSENT: calf tenderness, clubbing, pedal edema Neurological exam: PRESENT: alert, awake, oriented to person, oriented to place , oriented to time, oriented to situation Psychiatric exam: PRESENT: appropriate affect Skin exam: PRESENT: dry, intact, warm. ABSENT: cyanosis, rash Results Laboratory Results: 09/20/16 03:57 09/20/16 03:57 09/20/16 09/20/16 03:57 03:57 WBC 14.6 H RBC 4.06 Hgb 12.9 Hct 39.9 MCV 98 H MCH 31.8 MCHC 32.3 RDW 14.0 Plt Count 216 Seg Neutrophils % 86.7 H Lymphocytes % 7.2 L Monocytes % 5.5 Eosinophils % 0.3 Basophils % 0.3 Absolute Neutrophils 12.6 H Absolute Lymphocytes 1.0 Absolute Monocytes 0.8 Absolute Eosinophils 0.0 Absolute Basophils 0.0 Sodium 143.1 Potassium 4.5 Chloride 105 Carbon Dioxide 30 Anion Gap 8 BUN 24 H Creatinine 0.65 Est GFR ( Amer) > 60 Est GFR (Non-Af Amer) > 60 Glucose 141 H Calcium 10.0 09/17/16 03:20 Sputum Gram Stain - Final 09/17/16 03:20 Sputum Sputum Culture - Final NORMAL LUBA Impressions: Chest X-Ray 09/16/16 11:50 IMPRESSION: New airspace disease in the medial right upper lobe and left midlung Bibasilar bandlike atelectasis. Chest/Abdomen CTA 09/16/16 12:06 IMPRESSION: Multifocal airspace disease worrisome for multifocal pneumonia. No CT angio evidence of acute pulmonary emboli or thoracic aortic dissection Assessment & Plan - Diagnosis (1) Acute respiratory failure with hypoxia Is this a current diagnosis for this admission?: YesPlan: The patient has bilateral pneumonia as well as an acute COPD exacerbation as the cause for her failure. She is currently on BiPAP and is comfortable. (2) Bilateral pneumonia Qualifiers: Pneumonia type: due to unspecified organism Lung location: unspecified part of lung Qualified Code(s): J18.9 - Pneumonia, unspecified organism Is this a current diagnosis for this admission?: YesPlan: The patient is currently on Rocephin and Levaquin. She has one blood culture that is growing out gram-positive cocci. We'll continue with current antibiotic therapy in addition to the BiPAP and steroids. (3) COPD exacerbation Is this a current diagnosis for this admission?: YesPlan: Patient is on steroids and nebulizers and we will continue with those. (4) Coronary artery disease Qualifiers: Coronary Disease-Associated Artery/Lesion type: [place] artery Is this a current diagnosis for this admission?: YesPlan: She denies any chest pain. (5) CHF (congestive heart failure) Qualifiers: Congestive heart failure type: unspecified congestive heart failure type Congestive heart failure chronicity: chronic Qualified Code(s): I50.9 - Heart failure, unspecified Is this a current diagnosis for this admission?: YesPlan: Patient is euvolemic on exam today. (6) HTN (hypertension) Qualifiers: Hypertension type: essential hypertension Qualified Code(s): I10 - Essential (primary) hypertension Is this a current diagnosis for this admission?: YesPlan: Blood pressure is stable. (7) Hyperlipidemia Qualifiers: Hyperlipidemia type: unspecified Qualified Code(s): E78.5 - Hyperlipidemia, unspecified Is this a current diagnosis for this admission?: YesPlan: Continue with Lipitor. - Time Time Spent with patient: 15-24 minutes - Inpatient Certification Medical Necessity: Need Close Monitoring Due to Risk of Patient Decompensation, Need for IV Antibiotics
[2016-09-20] MEDS: ATORVASTATIN CALCIUM 20 MG TABLET PO SCH (21:48)
[2016-09-20] MEDS: MIRTAZAPINE 15 MG TABLET PO SCH (21:48)
[2016-09-21 04:48] LABS: ABSOLUTE LYMPHOCYTES (AUTO) 0.9 10^3/uL (0.5-4.7); ABSOLUTE MONOCYTES (AUTO) 0.4 10^3/uL (0.1-1.4); BASOPHILS % (AUTO) 0.3 % (0-2); EOSINOPHILS % (AUTO) 0.1 % (0-6); HEMATOCRIT 39.5 % (36.0-47.0); HEMOGLOBIN 13.4 g/dL (12.0-15.5); HGB HCT DIFFERENCE 0.7; LYMPHOCYTES % (AUTO) 7.3 % (13-45); MEAN CORPUSCULAR HEMOGLOBIN 32.8 pg (27.0-33.4); MEAN CORPUSCULAR VOLUME 97 fl (80-97); MONOCYTES % (AUTO) 3.6 % (3-13); RED BLOOD COUNT 4.09 10^6/uL (3.72-5.28); RED CELL DISTRIBUTION WIDTH 14.1 % (11.5-14.0); SEGMENTED NEUTROPHILS % (AUTO) 88.7 % (42-78); WHITE BLOOD COUNT 12.4 10^3/uL (4.0-10.5)
[2016-09-21 05:11] LABS: ANION GAP 9 (5-19); BLOOD UREA NITROGEN 27 mg/dL (7-20); CALCIUM 10.3 mg/dL (8.4-10.2); CARBON DIOXIDE 31 mmol/L (22-30); CHLORIDE 101 mmol/L (98-107); CREATININE RESULT 0.71 mg/dL (0.52-1.25); GLUCOSE 226 mg/dL (75-110); POTASSIUM 5.2 mmol/L (3.6-5.0); SODIUM 140.7 mmol/L (137-145)
[2016-09-21] MEDS: LANSOPRAZOLE 30 MG TAB.RAP.DR PO SCH (06:58)
[2016-09-21] MEDS: ACETYLCYSTEINE 20% SOLN 800 MG/4 ML VIAL.NEB NEB SCH ×2 (07:35→19:42)
[2016-09-21] MEDS: IPRATROPIUM/ALBUTEROL 0.5-2.5 MG/3 ML AMPUL NEB SCH ×4 (07:36→19:42)
--- NOTE | 2016-09-21 09:01 | PDOC PROGRESS REPORT ---
Subjective Progress Note for:: 09/21/16 Subjective:: The patient looks much better. She states to feel much better unfortunately she is still requiring high concentrating oxygen. Her cough has improved. Had dyspnea has improved. Physical Exam Vital Signs: Temp Pulse Resp BP Pulse Ox 98.3 F 95 18 99/62 L 89 L 09/20/16 20:41 09/21/16 07:35 09/21/16 07:35 09/20/16 20:41 09/21/16 07:35 Intake & Output 09/20/16 09/21/16 09/22/16 06:59 06:59 06:59 Intake Total 1821 1696 Output Total 1225 600 Balance 596 1096 Weight 67.4 kg 66.5 kg General appearance: PRESENT: mild distress Head exam: PRESENT: atraumatic Eye exam: PRESENT: conjunctival injection Neck exam: PRESENT: full ROM Respiratory exam: PRESENT: rhonchi, wheezes Cardiovascular exam: PRESENT: +S1, +S2 Pulses: PRESENT: +1 pedal pulses bilateral GI/Abdominal exam: PRESENT: normal bowel sounds, soft Neurological exam: PRESENT: alert, oriented to time Results Laboratory Results: 09/21/16 03:50 09/21/16 03:50 09/21/16 09/21/16 03:50 03:50 WBC 12.4 H RBC 4.09 Hgb 13.4 Hct 39.5 MCV 97 MCH 32.8 MCHC 34.0 RDW 14.1 H Plt Count 205 Seg Neutrophils % 88.7 H Lymphocytes % 7.3 L Monocytes % 3.6 Eosinophils % 0.1 Basophils % 0.3 Absolute Neutrophils 11.0 H Absolute Lymphocytes 0.9 Absolute Monocytes 0.4 Absolute Eosinophils 0.0 Absolute Basophils 0.0 Sodium 140.7 Potassium 5.2 H Chloride 101 Carbon Dioxide 31 H Anion Gap 9 BUN 27 H Creatinine 0.71 Est GFR ( Amer) > 60 Est GFR (Non-Af Amer) > 60 Glucose 226 H Calcium 10.3 H 09/18/16 13:30 Sputum Gram Stain - Final 09/18/16 13:30 Sputum Sputum Culture - Final C.albicans/C.dubliniensis Normal Debra Impressions: Chest X-Ray 09/16/16 11:50 IMPRESSION: New airspace disease in the medial right upper lobe and left midlung Bibasilar bandlike atelectasis. Chest/Abdomen CTA 09/16/16 12:06 IMPRESSION: Multifocal airspace disease worrisome for multifocal pneumonia. No CT angio evidence of acute pulmonary emboli or thoracic aortic dissection Assessment & Plan - Diagnosis (1) Acute respiratory failure with hypoxia Is this a current diagnosis for this admission?: YesPlan: Improving but very slowly. We will consult pulmonology. (2) Bilateral pneumonia Qualifiers: Pneumonia type: due to unspecified organism Lung location: unspecified part of lung Qualified Code(s): J18.9 - Pneumonia, unspecified organism Is this a current diagnosis for this admission?: YesPlan: Continue present antibiotics and will switch to by mouth medication (3) Leukocytosis Qualifiers: Leukocytosis type: other Qualified Code(s): D72.828 - Other elevated white blood cell count Is this a current diagnosis for this admission?: Yes (4) Tobacco dependency Is this a current diagnosis for this admission?: Yes (5) Coronary artery disease Qualifiers: Coronary Disease-Associated Artery/Lesion type: [place] artery Is this a current diagnosis for this admission?: YesPlan: Continue present medications and consult with cardiology (6) CHF (congestive heart failure) Qualifiers: Congestive heart failure type: unspecified congestive heart failure type Congestive heart failure chronicity: chronic Qualified Code(s): I50.9 - Heart failure, unspecified Is this a current diagnosis for this admission?: YesPlan: Stable continue current treatment
[2016-09-21] MEDS: ENOXAPARIN SODIUM INJ 40 MG/0.4 ML DISP.SYRIN SUBCUT SCH (09:36)
[2016-09-21] MEDS: POTASSIUM CHLORIDE 10 MEQ TABLET.SA PO SCH (09:40)
[2016-09-21] MEDS: CARVEDILOL 12.5 MG TABLET PO SCH ×2 (09:42→21:39)
[2016-09-21] MEDS: PREDNISONE 20 MG TABLET PO SCH ×2 (09:42→17:14)
[2016-09-21] MEDS: ASPIRIN 81 MG TABLET, ENT COATED PO SCH (09:43)
[2016-09-21] MEDS: AMLODIPINE BESYLATE 5 MG TABLET PO SCH (09:43)
[2016-09-21] MEDS: GUAIFENESIN 600 MG TABLET.SA PO SCH ×2 (09:43→21:39)
[2016-09-21] MEDS: FUROSEMIDE 20 MG TABLET PO SCH (09:44)
[2016-09-21] MEDS: LISINOPRIL 10 MG TABLET PO SCH ×2 (09:44→21:40)
[2016-09-21] MEDS: LEVOFLOXACIN 500 MG TABLET PO SCH (09:44)
[2016-09-21] MEDS: CEFTRIAXONE 1 GM/D5W RTU 50 ML IV SCH (09:45)
[2016-09-21] MEDS: NYSTATIN/DEXAMETH/DIPHEN SUSP 120 ML PO SCH ×2 (18:28→21:40)
[2016-09-21 19:02] LABS: ARTERIAL BLOOD BASE EXCESS 5.2 mmol/L; ARTERIAL BLOOD O2 SATURATION 97.1 % (94-98)
[2016-09-21] MEDS: MIRTAZAPINE 15 MG TABLET PO SCH (21:39)
[2016-09-21] MEDS: ATORVASTATIN CALCIUM 20 MG TABLET PO SCH (21:40)
[2016-09-22] MEDS: LANSOPRAZOLE 30 MG TAB.RAP.DR PO SCH (06:37)
[2016-09-22] MEDS: IPRATROPIUM/ALBUTEROL 0.5-2.5 MG/3 ML AMPUL NEB SCH ×4 (08:42→19:57)
[2016-09-22] MEDS: ACETYLCYSTEINE 20% SOLN 800 MG/4 ML VIAL.NEB NEB SCH ×2 (08:42→19:57)
--- NOTE | 2016-09-22 09:25 | PDOC CONSULTATION ---
[id number] 17:39 ROMAINE JOHNSON, History of Present Illness: ISRA PARRA is a 66 year old female patient with PMH CAD, hypothyroidism, nicotene dependence with documented COPD, but patient denies any home treatment with inhalers or oxygen. Patient was admitted to the hospital with multifocal pneumonia on 09/16/2016. She first presented to the ED on 09/13/2016 with 48 hours of worsening of shortness of breath. CXR clear on this visit, was admitted overnight and treated for COPD exacerbation. After discharge progressive worsening of shortness of breath with return to ED with severe shortness of breath and wheezing. CXR with multifocal pneumonia. Started on venti mask and has been treated with broad spectrum antibiotic, Iv steroids, prednisone, and scheduled nebulized breathing treatments. Patient states symptoms have improved, however she is still requiring high flow oxygen at 15 L. Prior to admission she denies any problems with breathing, no complaints of dyspnea on exertion, chronic cough, or sputum production. 50 pack year smoking history, 1 1/2 pack currently. Has history of DVT in the past, CTA was completed on admission that was negative for any emboli. Denies any leg pain or swelling prior to admission. Repeat CXR was completed today with resolve overall improvement in infiltrates. Patient has been afebrile with no complaints of any chest pain, edema, chills, nausea, vomiting, or diarrhea. Past Medical History Cardiac Medical History: Reports: Congestive Heart Failure - Uncertain if systolic and/or diastolic., Coronary Artery Disease, DVT - History of, Hyperlipidema, Hypertension Denies: Myocardial Infarction, Pulmonary Embolism Pulmonary Medical History: Reports: Chronic Obstructive Pulmonary Disease (COPD) Neurological Medical History: Denies: Seizures Endocrine Medical History: Denies: Diabetes Mellitus Type 1, Diabetes Mellitus Type 2, Hyperthyroidism, Hypothyroidism GI Medical History: Denies: Cirrhosis, Gastroesophageal Reflux Disease, Hepatitis Musculoskeltal Medical History: Reports: Arthritis Skin Medical History: Denies: Eczema, Psoriasis Psychiatric Medical History: Reports: Depression Past Surgical History Past Surgical History: Reports: Adenoidectomy, Tubal Ligation Social History Lives with: Spouse/Significant other Smoking Status: Current Every Day Smoker Frequency of Alcohol Use: Rare Hx Recreational Drug Use: Yes Drugs: Marijuana Hx Prescription Drug Abuse: No Family History Family History: Reviewed & Not Pertinent Medication/Allergy Home Medications: Albuterol Sulfate [Ventolin Hfa] 2 puff IH Q4HP PRN 09/16/16 Amlodipine Besylate [Norvasc 10 mg Tablet] 5 mg PO DAILY 09/16/16 Aspirin [Aspirin EC] 81 mg PO DAILY 09/16/16 Carvedilol Phosphate [Coreg CR 80 mg Ext. Release Capsule] 80 mg PO DAILY Coconut Oil 1 cap PO DAILY 09/16/16 Lisinopril [Prinivil 10 mg Tablet] 10 mg PO Q12 09/16/16 Mirtazapine [Remeron] 45 mg PO QHS 09/16/16 [place]-3S/Dha/Epa/Fish Oil [Fish Oil 1,200 mg Softgel] 3 cap PO Q12 09/16/16 Potassium Chloride 20 meq PO DAILY 09/16/16 Rosuvastatin Calcium 10 mg PO DAILY 09/16/16 Furosemide [Lasix 40 mg Tablet] 40 mg PO DAILY #90 tablet 09/25/16 Levofloxacin [Levaquin 500 mg Tablet] 500 mg PO DAILY #7 tablet 09/25/16 Prednisone [Deltasone 20 mg Tablet] 10 mg PO BID #60 tablet 09/25/16 Allergies/Adverse Reactions: No Known Allergies Allergy (Verified 09/16/16 11:16) Physical Exam Vital Signs: Temp Pulse Resp BP Pulse Ox 98.3 F 101 H 16 99/62 L 93 09/20/16 20:41 09/21/16 14:00 09/21/16 12:00 09/20/16 20:41 09/21/16 12:00 Intake & Output 09/20/16 09/21/16 09/22/16 06:59 06:59 06:59 Intake Total 1821 1696 Output Total 1225 600 Balance 596 1096 Weight 67.4 kg 66.5 kg Results Laboratory Results: 09/21/16 03:50 09/21/16 03:50 09/21/16 09/21/16 03:50 03:50 WBC 12.4 H RBC 4.09 Hgb 13.4 Hct 39.5 MCV 97 MCH 32.8 MCHC 34.0 RDW 14.1 H Plt Count 205 Seg Neutrophils % 88.7 H Lymphocytes % 7.3 L Monocytes % 3.6 Eosinophils % 0.1 Basophils % 0.3 Absolute Neutrophils 11.0 H Absolute Lymphocytes 0.9 Absolute Monocytes 0.4 Absolute Eosinophils 0.0 Absolute Basophils 0.0 Sodium 140.7 Potassium 5.2 H Chloride 101 Carbon Dioxide 31 H Anion Gap 9 BUN 27 H Creatinine 0.71 Est GFR ( Amer) > 60 Est GFR (Non-Af Amer) > 60 Glucose 226 H Calcium 10.3 H Impressions: Chest/Abdomen CTA 09/16/16 12:06 IMPRESSION: Multifocal airspace disease worrisome for multifocal pneumonia. No CT angio evidence of acute pulmonary emboli or thoracic aortic dissection Chest X-Ray 09/21/16 00:00 IMPRESSION: Minimal residual left basilar airspace disease most likely atelectasis. Small left effusion cannot be excluded. Assessment & Plan - Diagnosis (1) Bilateral pneumonia Qualifiers: Pneumonia type: due to unspecified organism Lung location: unspecified part of lung Qualified Code(s): J18.9 - Pneumonia, unspecified organism Is this a current diagnosis for this admission?: Yes (2) COPD exacerbation Is this a current diagnosis for this admission?: Yes (3) Acute respiratory failure with hypoxia Is this a current diagnosis for this admission?: YesPlan: Patient states she subjectively feels better and CXR has improved, however she is still requiring high flow oxygen at 15L. Will obtain repeat blood gas with repeat of CTA if warranted based on results. Patient should continue scheduled incentive spirometer use, breathing treatments, and steroids. <WALLY ANDRES - Last Filed: 09/30/16 11:34> History of Present Illness Admission Date/PCP: 09/16/16 17:39 ROMAINE JOHNSON, History of Present Illness: ISRA PARRA is a 66 year old female Family History Parental Family History Reviewed: No Children Family History Reviewed: No Sibling(s) Family History Reviewed.: No Physical Exam Vital Signs: Temp Pulse Resp BP Pulse Ox 97.9 F 70 18 116/69 95 09/23/16 07:36 09/23/16 07:46 09/23/16 07:46 09/23/16 07:36 09/23/16 07:46 Intake & Output 09/22/16 09/23/16 09/24/16 06:59 06:59 06:59 Intake Total 1488 2445 Output Total 200 950 Balance 1288 1495 Weight 65.2 kg 65 kg General appearance: PRESENT: no acute distress, well-developed, well-nourished Head exam: PRESENT: atraumatic, normocephalic Eye exam: PRESENT: conjunctiva pale, EOMI Mouth exam: PRESENT: moist, neck supple, tongue midline Neck exam: ABSENT: carotid bruit, JVD, lymphadenopathy, thyromegaly Respiratory exam: PRESENT: decreased breath sounds, prolonged expiratory phas, rales, rhonchi, symmetrical, wheezes Cardiovascular exam: PRESENT: RRR, +S1, +S2 Pulses: PRESENT: normal radial pulses GI/Abdominal exam: PRESENT: normal bowel sounds, soft. ABSENT: distended, guarding, mass, organolmegaly, rebound, tenderness Rectal exam: PRESENT: deferred Musculoskeletal exam: PRESENT: normal inspection Neurological exam: PRESENT: alert, awake Psychiatric exam: PRESENT: normal mood Skin exam: PRESENT: dry, warm Results Laboratory Results: 09/21/16 03:50 09/21/16 03:50 Impressions: Chest/Abdomen CTA 09/16/16 12:06 IMPRESSION: Multifocal airspace disease worrisome for multifocal pneumonia. No CT angio evidence of acute pulmonary emboli or thoracic aortic dissection Chest X-Ray 09/23/16 00:00 IMPRESSION: Minimal residual left basilar atelectasis and small effusion. Assessment & Plan - Diagnosis (1) Acute respiratory failure with hypoxia Is this a current diagnosis for this admission?: No (2) Bilateral pneumonia Qualifiers: Pneumonia type: due to unspecified organism Lung location: unspecified part of lung Qualified Code(s): J18.9 - Pneumonia, unspecified organism Is this a current diagnosis for this admission?: YesPlan: Patient not happy but may need some BiPAP
[2016-09-22] MEDS: CEFTRIAXONE 1 GM/D5W RTU 50 ML IV SCH (09:53)
[2016-09-22] MEDS: ENOXAPARIN SODIUM INJ 40 MG/0.4 ML DISP.SYRIN SUBCUT SCH (09:53)
[2016-09-22] MEDS: PREDNISONE 20 MG TABLET PO SCH ×2 (09:54→17:11)
[2016-09-22] MEDS: ASPIRIN 81 MG TABLET, ENT COATED PO SCH (09:54)
[2016-09-22] MEDS: CARVEDILOL 12.5 MG TABLET PO SCH ×2 (09:57→21:46)
[2016-09-22] MEDS: GUAIFENESIN 600 MG TABLET.SA PO SCH ×2 (09:57→21:45)
[2016-09-22] MEDS: LISINOPRIL 10 MG TABLET PO SCH ×2 (09:57→21:45)
[2016-09-22] MEDS: FUROSEMIDE 20 MG TABLET PO SCH (09:58)
[2016-09-22] MEDS: AMLODIPINE BESYLATE 5 MG TABLET PO SCH (09:58)
[2016-09-22] MEDS: LEVOFLOXACIN 500 MG TABLET PO SCH (09:58)
[2016-09-22] MEDS: POTASSIUM CHLORIDE 10 MEQ TABLET.SA PO SCH (09:58)
[2016-09-22] MEDS: NYSTATIN/DEXAMETH/DIPHEN SUSP 120 ML PO SCH ×4 (09:59→21:47)
--- NOTE | 2016-09-22 13:06 | PDOC PROGRESS REPORT ---
Subjective Progress Note for:: 09/22/16 Subjective:: The patient states to feel much better. Her oxygen demand has reduced. She still having some cough but the shortness of breath has improved. Physical Exam Vital Signs: Temp Pulse Resp BP Pulse Ox 97.9 F 80 18 118/58 L 93 09/22/16 07:25 09/22/16 08:42 09/22/16 08:42 09/22/16 07:25 09/22/16 08:42 Intake & Output 09/21/16 09/22/16 09/23/16 06:59 06:59 06:59 Intake Total 1696 1488 Output Total 600 200 Balance 1096 1288 Weight 66.5 kg 65.2 kg General appearance: PRESENT: mild distress Head exam: PRESENT: atraumatic Eye exam: PRESENT: conjunctiva pink Neck exam: ABSENT: carotid bruit, JVD Respiratory exam: PRESENT: rhonchi, wheezes Cardiovascular exam: PRESENT: +S1, +S2 Pulses: PRESENT: +1 pedal pulses bilateral Vascular exam: PRESENT: normal capillary refill GI/Abdominal exam: PRESENT: normal bowel sounds, soft Neurological exam: PRESENT: alert, awake, oriented to time Results Laboratory Results: 09/21/16 03:50 09/21/16 03:50 09/21/16 18:40 Carbonic Acid 1.34 HCO3/H2CO3 Ratio 22:1 ABG pH 7.45 ABG pCO2 44.5 ABG pO2 89.3 ABG HCO3 30.0 H ABG O2 Saturation 97.1 ABG Base Excess 5.2 FiO2 15% Impressions: Chest/Abdomen CTA 09/16/16 12:06 IMPRESSION: Multifocal airspace disease worrisome for multifocal pneumonia. No CT angio evidence of acute pulmonary emboli or thoracic aortic dissection Chest X-Ray 09/21/16 00:00 IMPRESSION: Minimal residual left basilar airspace disease most likely atelectasis. Small left effusion cannot be excluded. Assessment & Plan - Diagnosis (1) Acute respiratory failure with hypoxia Is this a current diagnosis for this admission?: YesPlan: Improving with steroids nebulization treatments and oxygen (2) Bilateral pneumonia Qualifiers: Pneumonia type: due to unspecified organism Lung location: unspecified part of lung Qualified Code(s): J18.9 - Pneumonia, unspecified organism Is this a current diagnosis for this admission?: YesPlan: Continue with antibiotics (3) Leukocytosis Qualifiers: Leukocytosis type: other Qualified Code(s): D72.828 - Other elevated white blood cell count Is this a current diagnosis for this admission?: Yes (4) Tobacco dependency Is this a current diagnosis for this admission?: Yes (5) Coronary artery disease Qualifiers: Coronary Disease-Associated Artery/Lesion type: [place] artery Is this a current diagnosis for this admission?: YesPlan: Continue present medications and consult with cardiology (6) CHF (congestive heart failure) Qualifiers: Congestive heart failure type: unspecified congestive heart failure type Congestive heart failure chronicity: chronic Qualified Code(s): I50.9 - Heart failure, unspecified Is this a current diagnosis for this admission?: YesPlan: Stable continue current treatment
--- NOTE | 2016-09-22 17:46 | PDOC PROGRESS REPORT ---
Subjective Subjective:: Patient continues to improve. Down to 10L high flow oxygen today. Has been up ambulating in room today. Was able to sleep lying flat last night and this is the first night this was possible. No fever, chills,nausea, vomiting, or diarrhea. Physical Exam Vital Signs: Temp Pulse Resp BP Pulse Ox 98.5 F 82 16 130/77 H 97 09/22/16 14:08 09/22/16 15:36 09/22/16 15:36 09/22/16 14:08 09/22/16 14:08 Intake & Output 09/21/16 09/22/16 09/23/16 06:59 06:59 06:59 Intake Total 1696 1488 Output Total 600 200 Balance 1096 1288 Weight 66.5 kg 65.2 kg Results Laboratory Results: 09/21/16 03:50 09/21/16 03:50 09/21/16 18:40 Carbonic Acid 1.34 HCO3/H2CO3 Ratio 22:1 ABG pH 7.45 ABG pCO2 44.5 ABG pO2 89.3 ABG HCO3 30.0 H ABG O2 Saturation 97.1 ABG Base Excess 5.2 FiO2 15% Impressions: Chest/Abdomen CTA 09/16/16 12:06 IMPRESSION: Multifocal airspace disease worrisome for multifocal pneumonia. No CT angio evidence of acute pulmonary emboli or thoracic aortic dissection Chest X-Ray 09/21/16 00:00 IMPRESSION: Minimal residual left basilar airspace disease most likely atelectasis. Small left effusion cannot be excluded. Assessment & Plan - Diagnosis (1) Bilateral pneumonia Qualifiers: Pneumonia type: due to unspecified organism Lung location: unspecified part of lung Qualified Code(s): J18.9 - Pneumonia, unspecified organism Is this a current diagnosis for this admission?: YesPlan: Patient continues to improve daily, continue treatment plan add chest physiotherapy to assist with secretion mobilization. Continue incentive spirometer, flutter valve, and ambulation as tolerated. (2) Acute respiratory failure with hypoxia Is this a current diagnosis for this admission?: YesPlan: Oxygen requirement has improved today. Blood gas this AM O2 good. Continue current treatment plan. Recommended BIPAP use at night to help improve oxygenation, however refused this at this time and would like to just continue with current treatment plan. (3) COPD exacerbation Is this a current diagnosis for this admission?: YesPlan: Would like to follow-up with patient at discharge for full pulmonary work-up.
[2016-09-22] MEDS ORDERED: FLUCONAZOLE 100 MG TABLET PO ONE (18:30)
[2016-09-22] MEDS: MIRTAZAPINE 15 MG TABLET PO SCH (21:46)
[2016-09-22] MEDS: ATORVASTATIN CALCIUM 20 MG TABLET PO SCH (21:46)
[2016-09-23] MEDS: LANSOPRAZOLE 30 MG TAB.RAP.DR PO SCH (05:56)
[2016-09-23] MEDS: ACETYLCYSTEINE 20% SOLN 800 MG/4 ML VIAL.NEB NEB SCH ×2 (07:46→19:31)
[2016-09-23] MEDS: IPRATROPIUM/ALBUTEROL 0.5-2.5 MG/3 ML AMPUL NEB SCH ×4 (07:46→19:32)
--- NOTE | 2016-09-23 08:47 | PDOC PROGRESS REPORT ---
Subjective Progress Note for:: 09/23/16 Subjective:: The patient states to feel much better this morning. She was much more active last night. Her blood gas from yesterday was much improved. She is still on 10 L of oxygen. Discussed with pulmonology. Her cough has improved. Physical Exam Vital Signs: Temp Pulse Resp BP Pulse Ox 97.9 F 69 18 116/69 98 09/23/16 07:36 09/23/16 07:36 09/23/16 07:36 09/23/16 07:36 09/23/16 07:36 Intake & Output 09/22/16 09/23/16 09/24/16 06:59 06:59 06:59 Intake Total 1488 2445 Output Total 200 950 Balance 1288 1495 Weight 65.2 kg 65 kg General appearance: PRESENT: mild distress Head exam: PRESENT: atraumatic Eye exam: PRESENT: conjunctiva pink Neck exam: ABSENT: carotid bruit, JVD Respiratory exam: PRESENT: rhonchi, wheezes Cardiovascular exam: PRESENT: +S1, +S2 Pulses: PRESENT: +1 pedal pulses bilateral GI/Abdominal exam: PRESENT: normal bowel sounds, soft Extremities exam: PRESENT: full ROM Musculoskeletal exam: PRESENT: ambulatory Neurological exam: PRESENT: alert, awake, oriented to time, CN II-XII grossly intact Results Laboratory Results: 09/21/16 03:50 09/21/16 03:50 Impressions: Chest/Abdomen CTA 09/16/16 12:06 IMPRESSION: Multifocal airspace disease worrisome for multifocal pneumonia. No CT angio evidence of acute pulmonary emboli or thoracic aortic dissection Chest X-Ray 09/21/16 00:00 IMPRESSION: Minimal residual left basilar airspace disease most likely atelectasis. Small left effusion cannot be excluded. Assessment & Plan - Diagnosis (1) Acute respiratory failure with hypoxia Is this a current diagnosis for this admission?: YesPlan: Improving with antibiotics and steroids with nebulization treatments. (2) Bilateral pneumonia Qualifiers: Pneumonia type: due to unspecified organism Lung location: unspecified part of lung Qualified Code(s): J18.9 - Pneumonia, unspecified organism Is this a current diagnosis for this admission?: YesPlan: Improving with a white count decreased and improved in oxygen saturation on the blood gas (3) Leukocytosis Qualifiers: Leukocytosis type: other Qualified Code(s): D72.828 - Other elevated white blood cell count Is this a current diagnosis for this admission?: YesPlan: We'll continue with antibiotics. The possibility of leukocytosis been partly related to steroids has been considered (4) Tobacco dependency Is this a current diagnosis for this admission?: YesPlan: We'll attempt smoking cessation (5) Coronary artery disease Qualifiers: Coronary Disease-Associated Artery/Lesion type: [place] artery Is this a current diagnosis for this admission?: YesPlan: Continue present medications and consult with cardiology (6) CHF (congestive heart failure) Qualifiers: Congestive heart failure type: unspecified congestive heart failure type Congestive heart failure chronicity: chronic Qualified Code(s): I50.9 - Heart failure, unspecified Is this a current diagnosis for this admission?: YesPlan: Stable continue current treatment
[2016-09-23] MEDS: CEFTRIAXONE 1 GM/D5W RTU 50 ML IV SCH (09:36)
[2016-09-23] MEDS: ENOXAPARIN SODIUM INJ 40 MG/0.4 ML DISP.SYRIN SUBCUT SCH (09:36)
[2016-09-23] MEDS: LEVOFLOXACIN 500 MG TABLET PO SCH (09:37)
[2016-09-23] MEDS: ASPIRIN 81 MG TABLET, ENT COATED PO SCH (09:37)
[2016-09-23] MEDS: FUROSEMIDE 20 MG TABLET PO SCH (09:37)
[2016-09-23] MEDS: AMLODIPINE BESYLATE 5 MG TABLET PO SCH (09:38)
[2016-09-23] MEDS: CARVEDILOL 12.5 MG TABLET PO SCH ×2 (09:38→22:27)
[2016-09-23] MEDS: PREDNISONE 20 MG TABLET PO SCH ×2 (09:38→18:08)
[2016-09-23] MEDS: LISINOPRIL 10 MG TABLET PO SCH ×2 (09:38→22:29)
[2016-09-23] MEDS: NYSTATIN/DEXAMETH/DIPHEN SUSP 120 ML PO SCH ×4 (09:39→22:29)
[2016-09-23] MEDS: GUAIFENESIN 600 MG TABLET.SA PO SCH ×2 (09:40→22:29)
[2016-09-23] MEDS: POTASSIUM CHLORIDE 10 MEQ TABLET.SA PO SCH (09:44)
[2016-09-23] MEDS: LOPERAMIDE HCL 2 MG CAPSULE PO PRN (09:58)
--- NOTE | 2016-09-23 12:04 | PDOC PROGRESS REPORT ---
Subjective Progress Note for:: 09/23/16 Subjective:: Feeling much better today Physical Exam Vital Signs: Temp Pulse Resp BP Pulse Ox 97.9 F 70 18 116/69 95 09/23/16 07:36 09/23/16 07:46 09/23/16 07:46 09/23/16 07:36 09/23/16 07:46 Intake & Output 09/22/16 09/23/16 09/24/16 06:59 06:59 06:59 Intake Total 1488 2445 Output Total 200 950 Balance 1288 1495 Weight 65.2 kg 65 kg General appearance: PRESENT: no acute distress, cooperative, well-developed, well-nourished Head exam: PRESENT: atraumatic, normocephalic Eye exam: PRESENT: conjunctiva pale, EOMI Neck exam: ABSENT: carotid bruit, JVD, lymphadenopathy, thyromegaly Respiratory exam: PRESENT: decreased breath sounds, prolonged expiratory phas, rhonchi, symmetrical, unlabored Cardiovascular exam: PRESENT: RRR, +S1, +S2 Pulses: PRESENT: normal radial pulses GI/Abdominal exam: PRESENT: normal bowel sounds, soft. ABSENT: distended, guarding, mass, organolmegaly, rebound, tenderness Rectal exam: PRESENT: deferred Neurological exam: PRESENT: alert, altered, awake, oriented to person, oriented to place, oriented to time, oriented to situation Psychiatric exam: PRESENT: normal mood Skin exam: PRESENT: dry, warm Results Laboratory Results: 09/21/16 03:50 09/21/16 03:50 Impressions: Chest/Abdomen CTA 09/16/16 12:06 IMPRESSION: Multifocal airspace disease worrisome for multifocal pneumonia. No CT angio evidence of acute pulmonary emboli or thoracic aortic dissection Chest X-Ray 09/23/16 00:00 IMPRESSION: Minimal residual left basilar atelectasis and small effusion. Assessment & Plan - Diagnosis (1) Bilateral pneumonia Qualifiers: Pneumonia type: due to unspecified organism Lung location: unspecified part of lung Qualified Code(s): J18.9 - Pneumonia, unspecified organism Is this a current diagnosis for this admission?: YesPlan: Clinically improved currently down to 6 L per nasal cannula for oxygen requirements (2) Acute respiratory failure with hypoxia Is this a current diagnosis for this admission?: Yes (3) COPD exacerbation Is this a current diagnosis for this admission?: YesPlan: Bronchodilator therapy discussed at length with the patient probability she may go home on oxygen she understands felt that it one time it might be necessary to put on BiPAP which she was not completely open to however as her O2 requirements are diminishing I do not think this is necessary (4) Tobacco dependency Is this a current diagnosis for this admission?: YesPlan: Stop smoking smoked up until the time of admission 1-1/2 packs per day for approximately 32 years.
[2016-09-23] MEDS: MIRTAZAPINE 15 MG TABLET PO SCH (22:27)
[2016-09-23] MEDS: ATORVASTATIN CALCIUM 20 MG TABLET PO SCH (22:27)
[2016-09-24 05:16] LABS: ABSOLUTE BASOPHILS # (AUTO) 0.1 10^3/uL (0.0-0.2); ABSOLUTE MONOCYTES (AUTO) 0.7 10^3/uL (0.1-1.4); ABSOLUTE NEUT (AUTO) 16.9 10^3/uL (1.7-8.2); BASOPHILS % (AUTO) 0.5 % (0-2); EOSINOPHILS % (AUTO) 0.2 % (0-6); HEMATOCRIT 42.3 % (36.0-47.0); HEMOGLOBIN 14.3 g/dL (12.0-15.5); HGB HCT DIFFERENCE 0.6; LYMPHOCYTES % (AUTO) 5.4 % (13-45); MEAN CORPUSCULAR HEMOGLOBIN 32.7 pg (27.0-33.4); MEAN CORPUSCULAR HGB CONC 33.8 g/dL (32.0-36.0); MEAN CORPUSCULAR VOLUME 97 fl (80-97); MONOCYTES % (AUTO) 3.5 % (3-13); RED BLOOD COUNT 4.38 10^6/uL (3.72-5.28); RED CELL DISTRIBUTION WIDTH 13.7 % (11.5-14.0); SEGMENTED NEUTROPHILS % (AUTO) 90.4 % (42-78); WHITE BLOOD COUNT 18.7 10^3/uL (4.0-10.5)
[2016-09-24 05:33] LABS: ALANINE AMINOTRANSFERASE 58 U/L (9-52); ALBUMIN 3.5 g/dL (3.5-5.0); ALKALINE PHOSPHATASE 65 U/L (38-126); ANION GAP 11 (5-19); ASPARTATE AMINO TRANSFERASE 25 U/L (14-36); BILIRUBIN,TOTAL 0.3 mg/dL (0.2-1.3); BLOOD UREA NITROGEN 29 mg/dL (7-20); CALCIUM 10.1 mg/dL (8.4-10.2); CARBON DIOXIDE 33 mmol/L (22-30); CHLORIDE 95 mmol/L (98-107); CREATININE RESULT 0.84 mg/dL (0.52-1.25); GLUCOSE 225 mg/dL (75-110); MAGNESIUM 2.6 mg/dL (1.6-2.3); POTASSIUM 5.9 mmol/L (3.6-5.0); SODIUM 138.9 mmol/L (137-145); TOTAL PROTEIN 6.5 g/dL (6.3-8.2)
[2016-09-24] MEDS: LANSOPRAZOLE 30 MG TAB.RAP.DR PO SCH (06:35)
[2016-09-24] MEDS ORDERED: FUROSEMIDE 20 MG TABLET PO SCH (07:36)
--- NOTE | 2016-09-24 08:43 | PDOC PROGRESS REPORT ---
Subjective Progress Note for:: 09/24/16 Subjective:: The patient states to feel much better. Her oxygen requirements are much improved. She has been on room air for the past 30 minutes. He O2 saturation is 86%. The patient will be placed back on oxygen nasal cannula and With ambulation to check the O2 saturation Physical Exam Vital Signs: Temp Pulse Resp BP Pulse Ox 97.2 F 73 19 114/47 L 92 09/24/16 07:28 09/24/16 07:28 09/24/16 07:28 09/24/16 07:28 09/24/16 07:28 Intake & Output 09/23/16 09/24/16 09/25/16 06:59 06:59 06:59 Intake Total 2445 2112 Output Total 950 1500 Balance 1495 612 Weight 65 kg 65.4 kg General appearance: PRESENT: no acute distress Head exam: PRESENT: atraumatic Eye exam: PRESENT: conjunctiva pink Neck exam: ABSENT: carotid bruit, JVD Respiratory exam: PRESENT: accessory muscle use, rhonchi Additional comments: Scattered wheezing which has improved since yesterday Cardiovascular exam: PRESENT: +S1, +S2 Pulses: PRESENT: +1 pedal pulses bilateral Vascular exam: PRESENT: normal capillary refill GI/Abdominal exam: PRESENT: normal bowel sounds, soft Extremities exam: PRESENT: full ROM Musculoskeletal exam: PRESENT: ambulatory Neurological exam: PRESENT: alert, awake, oriented to time Results Laboratory Results: 09/24/16 04:07 09/24/16 04:07 09/24/16 09/24/16 04:07 04:07 WBC 18.7 H RBC 4.38 Hgb 14.3 Hct 42.3 MCV 97 MCH 32.7 MCHC 33.8 RDW 13.7 Plt Count 240 Seg Neutrophils % 90.4 H Lymphocytes % 5.4 L Monocytes % 3.5 Eosinophils % 0.2 Basophils % 0.5 Absolute Neutrophils 16.9 H Absolute Lymphocytes 1.0 Absolute Monocytes 0.7 Absolute Eosinophils 0.0 Absolute Basophils 0.1 Sodium 138.9 Potassium 5.9 H Chloride 95 L Carbon Dioxide 33 H Anion Gap 11 BUN 29 H Creatinine 0.84 Est GFR ( Amer) > 60 Est GFR (Non-Af Amer) > 60 Glucose 225 H Calcium 10.1 Magnesium 2.6 H Total Bilirubin 0.3 AST 25 ALT 58 H Alkaline Phosphatase 65 Total Protein 6.5 Albumin 3.5 Impressions: Chest/Abdomen CTA 09/16/16 12:06 IMPRESSION: Multifocal airspace disease worrisome for multifocal pneumonia. No CT angio evidence of acute pulmonary emboli or thoracic aortic dissection Chest X-Ray 09/23/16 00:00 IMPRESSION: Minimal residual left basilar atelectasis and small effusion. Assessment & Plan - Diagnosis (1) Acute respiratory failure with hypoxia Is this a current diagnosis for this admission?: YesPlan: Improving but requiring oxygen at high concentrations (2) Bilateral pneumonia Qualifiers: Pneumonia type: due to unspecified organism Lung location: unspecified part of lung Qualified Code(s): J18.9 - Pneumonia, unspecified organism Is this a current diagnosis for this admission?: YesPlan: Improving with chest x-ray much improved compared to the admission (3) Leukocytosis Qualifiers: Leukocytosis type: other Qualified Code(s): D72.828 - Other elevated white blood cell count Is this a current diagnosis for this admission?: YesPlan: The WBCs have gone up and at this point I suspect it's probably due to steroids (4) Tobacco dependency Is this a current diagnosis for this admission?: YesPlan: Long discussion about smoking cessation. The patient declines any nicotine patches or Chantix (5) Coronary artery disease Qualifiers: Coronary Disease-Associated Artery/Lesion type: [place] artery Is this a current diagnosis for this admission?: YesPlan: Continue present medications and consult with cardiology (6) CHF (congestive heart failure) Qualifiers: Congestive heart failure type: unspecified congestive heart failure type Congestive heart failure chronicity: chronic Qualified Code(s): I50.9 - Heart failure, unspecified Is this a current diagnosis for this admission?: YesPlan: We'll increase Lasix to 40 mg daily (7) Hyperkalemia Is this a current diagnosis for this admission?: YesPlan: We'll stop potassium supplement and increase the diuretic
[2016-09-24] MEDS: IPRATROPIUM/ALBUTEROL 0.5-2.5 MG/3 ML AMPUL NEB SCH ×4 (08:58→20:36)
[2016-09-24] MEDS: ACETYLCYSTEINE 20% SOLN 800 MG/4 ML VIAL.NEB NEB SCH ×2 (08:58→20:36)
[2016-09-24] MEDS: AMLODIPINE BESYLATE 5 MG TABLET PO SCH (09:30)
[2016-09-24] MEDS: CARVEDILOL 12.5 MG TABLET PO SCH ×2 (09:31→21:23)
[2016-09-24] MEDS: LISINOPRIL 10 MG TABLET PO SCH ×2 (09:31→21:23)
[2016-09-24] MEDS: GUAIFENESIN 600 MG TABLET.SA PO SCH ×2 (09:32→21:24)
[2016-09-24] MEDS: ASPIRIN 81 MG TABLET, ENT COATED PO SCH (09:32)
[2016-09-24] MEDS: FUROSEMIDE 40 MG TABLET PO SCH (09:32)
[2016-09-24] MEDS: NYSTATIN/DEXAMETH/DIPHEN SUSP 120 ML PO SCH ×4 (09:32→21:28)
[2016-09-24] MEDS: ENOXAPARIN SODIUM INJ 40 MG/0.4 ML DISP.SYRIN SUBCUT SCH (09:33)
[2016-09-24] MEDS: LOPERAMIDE HCL 2 MG CAPSULE PO PRN (09:37)
[2016-09-24] MEDS ORDERED: PREDNISONE 20 MG TABLET PO ONE (11:00)
[2016-09-24] MEDS ORDERED: PREDNISONE 20 MG TABLET PO SCH (18:00)
[2016-09-24] MEDS: ATORVASTATIN CALCIUM 20 MG TABLET PO SCH (21:23)
[2016-09-24] MEDS: MIRTAZAPINE 15 MG TABLET PO SCH (21:27)
[2016-09-25 04:29] LABS: ABSOLUTE EOSINOPHILS # (AUTO) 0.2 10^3/uL (0.0-0.6); ABSOLUTE LYMPHOCYTES (AUTO) 1.4 10^3/uL (0.5-4.7); ABSOLUTE MONOCYTES (AUTO) 0.8 10^3/uL (0.1-1.4); ABSOLUTE NEUT (AUTO) 12.2 10^3/uL (1.7-8.2); BASOPHILS % (AUTO) 0.3 % (0-2); EOSINOPHILS % (AUTO) 1.2 % (0-6); HEMATOCRIT 43.2 % (36.0-47.0); HEMOGLOBIN 13.8 g/dL (12.0-15.5); HGB HCT DIFFERENCE -1.8; LYMPHOCYTES % (AUTO) 9.7 % (13-45); MEAN CORPUSCULAR HEMOGLOBIN 31.4 pg (27.0-33.4); MEAN CORPUSCULAR HGB CONC 32.1 g/dL (32.0-36.0); MEAN CORPUSCULAR VOLUME 98 fl (80-97); MONOCYTES % (AUTO) 5.6 % (3-13); RED BLOOD COUNT 4.41 10^6/uL (3.72-5.28); RED CELL DISTRIBUTION WIDTH 13.9 % (11.5-14.0); SEGMENTED NEUTROPHILS % (AUTO) 83.2 % (42-78); WHITE BLOOD COUNT 14.6 10^3/uL (4.0-10.5)
[2016-09-25 04:56] LABS: ANION GAP 9 (5-19); BLOOD UREA NITROGEN 35 mg/dL (7-20); CARBON DIOXIDE 31 mmol/L (22-30); CHLORIDE 96 mmol/L (98-107); CREATININE RESULT 0.77 mg/dL (0.52-1.25); GLUCOSE 242 mg/dL (75-110); POTASSIUM 5.5 mmol/L (3.6-5.0); SODIUM 135.8 mmol/L (137-145)
[2016-09-25] MEDS: LANSOPRAZOLE 30 MG TAB.RAP.DR PO SCH (06:04)
[2016-09-25] MEDS: ACETYLCYSTEINE 20% SOLN 800 MG/4 ML VIAL.NEB NEB SCH (07:43)
[2016-09-25] MEDS: IPRATROPIUM/ALBUTEROL 0.5-2.5 MG/3 ML AMPUL NEB SCH ×2 (07:44→11:45)
[2016-09-25 09:22] LABS: ARTERIAL BLOOD BASE EXCESS 2.5 mmol/L; ARTERIAL BLOOD O2 SATURATION 98.2 % (94-98)
[2016-09-25] MEDS: FUROSEMIDE 40 MG TABLET PO SCH (09:58)
[2016-09-25] MEDS: GUAIFENESIN 600 MG TABLET.SA PO SCH (09:58)
[2016-09-25] MEDS: ASPIRIN 81 MG TABLET, ENT COATED PO SCH (09:59)
[2016-09-25] MEDS: CARVEDILOL 12.5 MG TABLET PO SCH (09:59)
[2016-09-25] MEDS: AMLODIPINE BESYLATE 5 MG TABLET PO SCH (09:59)
[2016-09-25] MEDS ORDERED: PREDNISONE 10 MG TABLET PO SCH (10:00)
[2016-09-25] MEDS: NYSTATIN/DEXAMETH/DIPHEN SUSP 120 ML PO SCH (10:00)
[2016-09-25] MEDS ORDERED: LEVOFLOXACIN 500 MG TABLET PO SCH (10:00)
[2016-09-25] MEDS: LISINOPRIL 10 MG TABLET PO SCH (10:00)
[2016-09-25] MEDS: ENOXAPARIN SODIUM INJ 40 MG/0.4 ML DISP.SYRIN SUBCUT SCH (10:03)
[2016-09-25] MEDS: LOPERAMIDE HCL 2 MG CAPSULE PO PRN (10:05)
--- NOTE | 2016-09-25 10:07 | PDOC DISCHARGE SUMMARY ---
General - Admit/Disc Date/PCP Admission Date/Primary Care Provider: 09/16/16 17:39 ROMAINE JOHNSON, Discharge Date: 09/25/16 - Discharge Diagnosis (1) Acute respiratory failure with hypoxia Is this a current diagnosis for this admission?: YesSummary: The patient will be discharged on home O2 at 4 L and we will adjust according to her improvements She'll continue with prednisone and we will slowly wean off as an outpatient (2) Bilateral pneumonia Is this a current diagnosis for this admission?: YesSummary: Improved we'll continue with Levaquin as an outpatient (3) Leukocytosis Is this a current diagnosis for this admission?: Yes (4) Tobacco dependency Is this a current diagnosis for this admission?: YesSummary: Smoking cessation discussed with the patient (5) Coronary artery disease Is this a current diagnosis for this admission?: YesSummary: Continue present treatment (6) CHF (congestive heart failure) Is this a current diagnosis for this admission?: YesSummary: Continue Lasix at 40 mg daily Will recheck labs (7) Hyperkalemia Is this a current diagnosis for this admission?: YesSummary: We'll hold the potassium and continue with diuretics - Additional Information Discharge Diet: As Tolerated Discharge Activity: Activity As Tolerated Home Medications: Albuterol Sulfate [Ventolin Hfa] 2 puff IH Q4HP PRN 09/16/16 Amlodipine Besylate [Norvasc 10 mg Tablet] 5 mg PO DAILY 09/16/16 Aspirin [Aspirin EC] 81 mg PO DAILY 09/16/16 Carvedilol Phosphate [Coreg CR 80 mg Ext. Release Capsule] 80 mg PO DAILY Coconut Oil 1 cap PO DAILY 09/16/16 Lisinopril [Prinivil 10 mg Tablet] 10 mg PO Q12 09/16/16 Mirtazapine [Remeron] 45 mg PO QHS 09/16/16 [place]-3S/Dha/Epa/Fish Oil [Fish Oil 1,200 mg Softgel] 3 cap PO Q12 09/16/16 Potassium Chloride 20 meq PO DAILY 09/16/16 Rosuvastatin Calcium 10 mg PO DAILY 09/16/16 Furosemide [Lasix 40 mg Tablet] 40 mg PO DAILY #90 tablet 09/25/16 Levofloxacin [Levaquin 500 mg Tablet] 500 mg PO DAILY #7 tablet 09/25/16 Prednisone [Deltasone 20 mg Tablet] 10 mg PO BID #60 tablet 09/25/16 History of Present Illness History of Present Illness: The patient was admitted with an acute respiratory failure hypoxemic she was started on high doses of steroids oxygen and nebulization treatments with antibiotics. She did quite well over the next several days with improvement. She was seen by pulmonology. She was placed on high pressure oxygen delivery. She was eventually able to be weaned off the high pressure O2 and placed on nasal cannula. Her ABG on 4 L was acceptable on discharge Hospital Course Hospital Course: See dictation of the previous Physical Exam Vital Signs: Temp Pulse Resp BP Pulse Ox 98.3 F 77 19 115/62 92 09/25/16 07:44 09/25/16 07:44 09/25/16 07:44 09/25/16 07:44 09/25/16 07:44 Intake & Output 09/24/16 09/25/16 09/26/16 06:59 06:59 06:59 Intake Total 2112 1963 Output Total 1500 3100 Balance 612 -1137 Weight 65.4 kg 65.6 kg General appearance: PRESENT: no acute distress Head exam: PRESENT: atraumatic Eye exam: PRESENT: conjunctiva pink Neck exam: ABSENT: carotid bruit, JVD Respiratory exam: PRESENT: rhonchi. ABSENT: wheezes Cardiovascular exam: PRESENT: +S1, +S2 Pulses: PRESENT: normal carotid pulses GI/Abdominal exam: PRESENT: normal bowel sounds, soft Musculoskeletal exam: PRESENT: ambulatory Neurological exam: PRESENT: alert Results Laboratory Results: 09/25/16 03:37 09/25/16 03:37 09/25/16 09/25/16 09/25/16 03:37 03:37 09:10 WBC 14.6 H RBC 4.41 Hgb 13.8 Hct 43.2 MCV 98 H MCH 31.4 MCHC 32.1 RDW 13.9 Plt Count 266 Seg Neutrophils % 83.2 H Lymphocytes % 9.7 L Monocytes % 5.6 Eosinophils % 1.2 Basophils % 0.3 Absolute Neutrophils 12.2 H Absolute Lymphocytes 1.4 Absolute Monocytes 0.8 Absolute Eosinophils 0.2 Absolute Basophils 0.0 Carbonic Acid 1.09 HCO3/H2CO3 Ratio 23:1 ABG pH 7.47 H ABG pCO2 36.2 ABG pO2 106.9 H ABG HCO3 25.8 ABG O2 Saturation 98.2 H ABG Base Excess 2.5 FiO2 4L Sodium 135.8 L Potassium 5.5 H Chloride 96 L Carbon Dioxide 31 H Anion Gap 9 BUN 35 H Creatinine 0.77 Est GFR ( Amer) > 60 Est GFR (Non-Af Amer) > 60 Glucose 242 H Calcium 10.0 Impressions: Chest/Abdomen CTA 09/16/16 12:06 IMPRESSION: Multifocal airspace disease worrisome for multifocal pneumonia. No CT angio evidence of acute pulmonary emboli or thoracic aortic dissection Chest X-Ray 09/23/16 00:00 IMPRESSION: Minimal residual left basilar atelectasis and small effusion. Plan Discharge Plan: We'll discharge the patient with portable and home O2. We'll continue with prednisone Continue Levaquin for one more week We will continue diuretics 40 mg Lasix daily. No smoking Smoking cessation discussed. Follow up in the office in one week and when necessary Time Spent: Greater than 30 Minutes
--- NOTE | 2016-09-25 11:30 | PDOC PROGRESS REPORT ---
Subjective Progress Note for:: 09/25/16 Subjective:: Patient awaiting discharge down to 4 L per nasal cannula she is aware of O2 requirements may be indefinite Physical Exam Vital Signs: Temp Pulse Resp BP Pulse Ox 98.3 F 89 16 130/77 H 97 09/25/16 11:08 09/25/16 11:08 09/25/16 11:08 09/25/16 11:08 09/25/16 11:08 Intake & Output 09/24/16 09/25/16 09/26/16 06:59 06:59 06:59 Intake Total 2112 1963 Output Total 1500 3100 Balance 612 -1137 Weight 65.4 kg 65.6 kg General appearance: PRESENT: no acute distress, well-developed, well-nourished Head exam: PRESENT: atraumatic, normocephalic Eye exam: PRESENT: conjunctiva pale, EOMI Mouth exam: PRESENT: moist, neck supple, tongue midline Neck exam: ABSENT: carotid bruit, JVD, lymphadenopathy, thyromegaly Respiratory exam: PRESENT: decreased breath sounds, prolonged expiratory phas, rhonchi, symmetrical, unlabored Cardiovascular exam: PRESENT: RRR, +S1, +S2 Pulses: PRESENT: normal radial pulses GI/Abdominal exam: PRESENT: normal bowel sounds, soft. ABSENT: distended, guarding, mass, organolmegaly, rebound, tenderness Rectal exam: PRESENT: deferred Musculoskeletal exam: PRESENT: normal inspection Neurological exam: PRESENT: alert, altered, awake, oriented to person, oriented to place, oriented to time, oriented to situation Psychiatric exam: PRESENT: normal mood Skin exam: PRESENT: dry, warm Results Laboratory Results: 09/25/16 03:37 09/25/16 03:37 09/25/16 09/25/16 09/25/16 03:37 03:37 09:10 WBC 14.6 H RBC 4.41 Hgb 13.8 Hct 43.2 MCV 98 H MCH 31.4 MCHC 32.1 RDW 13.9 Plt Count 266 Seg Neutrophils % 83.2 H Lymphocytes % 9.7 L Monocytes % 5.6 Eosinophils % 1.2 Basophils % 0.3 Absolute Neutrophils 12.2 H Absolute Lymphocytes 1.4 Absolute Monocytes 0.8 Absolute Eosinophils 0.2 Absolute Basophils 0.0 Carbonic Acid 1.09 HCO3/H2CO3 Ratio 23:1 ABG pH 7.47 H ABG pCO2 36.2 ABG pO2 106.9 H ABG HCO3 25.8 ABG O2 Saturation 98.2 H ABG Base Excess 2.5 FiO2 4L Sodium 135.8 L Potassium 5.5 H Chloride 96 L Carbon Dioxide 31 H Anion Gap 9 BUN 35 H Creatinine 0.77 Est GFR ( Amer) > 60 Est GFR (Non-Af Amer) > 60 Glucose 242 H Calcium 10.0 Impressions: Chest/Abdomen CTA 09/16/16 12:06 IMPRESSION: Multifocal airspace disease worrisome for multifocal pneumonia. No CT angio evidence of acute pulmonary emboli or thoracic aortic dissection Chest X-Ray 09/23/16 00:00 IMPRESSION: Minimal residual left basilar atelectasis and small effusion. Assessment & Plan - Diagnosis (1) Bilateral pneumonia Qualifiers: Pneumonia type: due to unspecified organism Lung location: unspecified part of lung Qualified Code(s): J18.9 - Pneumonia, unspecified organism Is this a current diagnosis for this admission?: YesPlan: Leukocytosis trending downward decreasing oxygen requirements radiographically significant improvement (2) Acute respiratory failure with hypoxia Is this a current diagnosis for this admission?: No (3) COPD exacerbation Is this a current diagnosis for this admission?: YesPlan: Continue current bronchodilator therapy will get follow-up PFTs as outpatient (4) Tobacco dependency Is this a current diagnosis for this admission?: YesPlan: Stop smoking
[2016-09-25 14:03] VITALS: BP 99/73
== END 2016-09-25 14:02 | disposition home or self-care (01) | DRG 193 ==
LOC: ER 11:08 → UNDOADMIN 15:01 → EH 15:01 → 3N 22:05
PROVIDERS: ADMIT Internal Medicine; ATTEND Internal Medicine
DX: J18.9 Pneumonia, unspecified organism (principal); J96.01 Acute respiratory failure with hypoxia; J44.1 Chronic obstructive pulmonary disease with (acute) exacerbation; I50.9 Heart failure, unspecified; I10 Essential (primary) hypertension; E87.5 Hyperkalemia; E78.00 Pure hypercholesterolemia, unspecified; E03.9 Hypothyroidism, unspecified; I25.10 Atherosclerotic heart disease of native coronary artery without angina pectoris; I34.0 Nonrheumatic mitral (valve) insufficiency; M19.90 Unspecified osteoarthritis, unspecified site; F32.9 Major depressive disorder, single episode, unspecified; F17.210 Nicotine dependence, cigarettes, uncomplicated; Z79.82 Long term (current) use of aspirin; Z86.718 Personal history of other venous thrombosis and embolism
CPT/HCPCS: 36415; 36600; 71010; 71020; 71275; 80048; 80053; 82550; 82553; 82803; 83605; 83735; 83880; 84484; 85025; 87040; 87070; 87077; 87186; 87205; 93005; 93010; 94640; 94668; 96365; 96375; 99285; J0696; J1650; J1956; J2930; J3490; J7030; J7512; J7620

== ENCOUNTER → 2018-01-12 | Outpatient (CLI) | payer MEDICARE, OTHER ==
[2018-01-12 11:40] LABS: ABSOLUTE BASOPHILS # (AUTO) 0.1 10^3/uL (0.0-0.2); ABSOLUTE EOSINOPHILS # (AUTO) 0.2 10^3/uL (0.0-0.6); ABSOLUTE LYMPHOCYTES (AUTO) 2.8 10^3/uL (0.5-4.7); ABSOLUTE MONOCYTES (AUTO) 0.8 10^3/uL (0.1-1.4); ABSOLUTE NEUT (AUTO) 3.5 10^3/uL (1.7-8.2); BASOPHILS % (AUTO) 0.9 % (0-2); EOSINOPHILS % (AUTO) 2.5 % (0-6); TOTAL CELLS COUNTED % (AUTO) 100 %; WHITE BLOOD COUNT 7.4 10^3/uL (4.0-10.5)
[2018-01-12 11:47] LABS: HEMATOCRIT 43.5 % (36.0-47.0); HEMOGLOBIN 14.8 g/dL (12.0-15.5); LYMPHOCYTES % (AUTO) 38.4 % (13-45); MEAN CORPUSCULAR HEMOGLOBIN 33.4 pg (27.0-33.4); MEAN CORPUSCULAR HGB CONC 33.9 g/dL (32.0-36.0); MEAN CORPUSCULAR VOLUME 99 fl (80-97); MONOCYTES % (AUTO) 10.7 % (3-13); PLATELET COUNT 169 10^3/uL (150-450); RED BLOOD COUNT 4.42 10^6/uL (3.72-5.28); RED CELL DISTRIBUTION WIDTH 13.8 % (11.5-14.0); SEGMENTED NEUTROPHILS % (AUTO) 47.5 % (42-78)
[2018-01-12 12:09] LABS: ALANINE AMINOTRANSFERASE 29 U/L (9-52); ALBUMIN 4.4 g/dL (3.5-5.0); ALKALINE PHOSPHATASE 56 U/L (38-126); ANION GAP 13 (5-19); ASPARTATE AMINO TRANSFERASE 26 U/L (14-36); BILIRUBIN,DIRECT 0.3 mg/dL (0.0-0.4); BILIRUBIN,TOTAL 0.5 mg/dL (0.2-1.3); BLOOD UREA NITROGEN 14 mg/dL (7-20); CALCIUM 10.4 mg/dL (8.4-10.2); CARBON DIOXIDE 29 mmol/L (22-30); CHLORIDE 106 mmol/L (98-107); CHOLESTEROL 148.24 mg/dL (0-200); GLUCOSE 122 mg/dL (75-110); POTASSIUM 4.5 mmol/L (3.6-5.0); SODIUM 147.8 mmol/L (137-145); TOTAL PROTEIN 7.4 g/dL (6.3-8.2); TRIGLYCERIDES 102 mg/dL (<150)
[2018-01-12 12:19] LABS: DIRECT LDL 64 mg/dL (<100)
[2018-01-12 12:29] LABS: CHOLESTEROL 148.24 mg/dL (0-200); DIRECT LDL 64 mg/dL (<100); TRIGLYCERIDES 102 mg/dL (<150); VLDL CHOLESTEROL 20.4 mg/dL (10-31)
== END ==
LOC: OD 11:11
PROVIDERS: ATTEND Internal Medicine
DX: I25.10 Atherosclerotic heart disease of native coronary artery without angina pectoris (principal); E78.5 Hyperlipidemia, unspecified; I42.9 Cardiomyopathy, unspecified; E83.52 Hypercalcemia; R53.83 Other fatigue
CPT/HCPCS: 36415; 80053; 80061; 83970; 84443; 85025

== ENCOUNTER → 2018-04-18 | Outpatient (CLI) | payer MEDICARE, OTHER ==
--- NOTE | 2018-04-18 13:23 | RADIOLOGY REPORT (SQ) ---
EXAM DESCRIPTION: FOOT LEFT COMPLETE COMPLETED DATE/TIME: 04/18/2018 12:41 pm REASON FOR STUDY: 4-5 TOE TRAUMA injury pain, tripped over door frame COMPARISON: None. NUMBER OF VIEWS: Three views. TECHNIQUE: AP, lateral and oblique radiographic images acquired of the left foot. LIMITATIONS: None. FINDINGS: MINERALIZATION: Normal. BONES: Acute spiral fracture, minimally displaced distal left 5th metatarsal. Tiny butterfly fragmen t. No other acute left foot fractures. JOINTS: No effusions. SOFT TISSUES: Diffuse forefoot soft tissue swelling. No foreign body. OTHER: No other significant finding. IMPRESSION: Acute spiral minimally displaced fracture, distal left 5th metatarsal TECHNICAL DOCUMENTATION: JOB ID: [id number] [employer]- All Rights Reserved Reading location - IP/workstation name: [email or web address]
== END ==
LOC: OD 12:16
PROVIDERS: ATTEND Internal Medicine
DX: S92.352A Displaced fracture of fifth metatarsal bone, left foot, initial encounter for closed fracture (principal); W22.8XXA Striking against or struck by other objects, initial encounter

== ENCOUNTER 2018-07-16 09:20 | Emergency (ER) | payer MEDICARE, OTHER ==
--- NOTE | 2018-07-16 09:49 | ER Document Report ---
HPI - HPI Patient complains to provider of: Right arm injury Onset: This morning Onset/Duration: Sudden Quality of pain: Achy Pain Level: 5 Context: Patient was walking out to check the mail and tripped falling injuring her right arm. Patient states that she has a history of a previous proximal humerus fracture in the past. Patient denies any head injury or loss of consciousness. Patient denies any chest pain back pain or abdominal tenderness. Patient denies taking any anticoagulants. Associated Symptoms: Other - Right upper arm pain Exacerbated by: Movement Relieved by: Denies Similar symptoms previously: Yes Recently seen / treated by doctor: No - ROS ROS below otherwise negative: Yes Systems Reviewed and Negative: Yes All other systems reviewed and negative - CONSTITUTIONAL Constitutional: DENIES: Fever - NEURO Neurology: DENIES: Headache, Weakness - CARDIOVASCULAR Cardiovascular: DENIES: Chest pain - RESPIRATORY Respiratory: DENIES: Trouble Breathing, Coughing - GASTROINTESTINAL Gastrointestinal: DENIES: Abdominal Pain, Nausea, Patient vomiting - MUSCULOSKELETAL Musculoskeletal: REPORTS: Extremity pain. DENIES: Back Pain, Neck Pain - DERM Skin Color: Normal, [place] Skin Problems: None Past Medical History - General Information source: Patient, Relative - Social History Smoking Status: Current Every Day Smoker Smoking Education Provided: Yes Frequency of alcohol use: None Drug Abuse: None Lives with: Family Family History: Reviewed & Not Pertinent Patient has suicidal ideation: No Patient has homicidal ideation: No - Past Medical History Cardiac Medical History: Reports: Hx Congestive Heart Failure - Uncertain if systolic and/or diastolic., Hx Coronary Artery Disease, Hx DVT - History of, Hx Hypercholesterolemia, Hx Hypertension Denies: Hx Heart Attack, Hx Pulmonary Embolism Pulmonary Medical History: Reports: Hx COPD Neurological Medical History: Denies: Hx Seizures Endocrine Medical History: Denies: Hx Diabetes Mellitus Type 1, Hx Diabetes Mellitus Type 2, Hx Hyperthyroidism, Hx Hypothyroidism Renal/ Medical History: Denies: Hx Peritoneal Dialysis GI Medical History: Denies: Hx Cirrhosis, Hx Gastroesophageal Reflux Disease, Hx Hepatitis Musculoskeletal Medical History: Reports Hx Arthritis Skin Medical History: Denies Hx Eczema, Denies Hx Psoriasis Psychiatric Medical History: Reports: Hx Depression Infectious Medical History: Denies: Hx Hepatitis Past Surgical History: Reports: Hx Adenoidectomy, Hx Tubal Ligation - Immunizations Hx Pneumococcal Vaccination: 09/13/14 Vertical Provider Document - CONSTITUTIONAL Agree With Documented VS: Yes Exam Limitations: No Limitations General Appearance: WD/WN, No Apparent Distress - INFECTION CONTROL TRAVEL OUTSIDE OF THE [place] IN LAST 30 DAYS: No - HEENT HEENT: Atraumatic, Normocephalic - NECK Neck: Normal Inspection - RESPIRATORY Respiratory: Breath Sounds Normal, No Respiratory Distress - CARDIOVASCULAR Cardiovascular: Regular Rate, Regular Rhythm Pulses: Normal: Radial - BACK Back: Normal Inspection - MUSCULOSKELETAL/EXTREMETIES Musculoskeletal/Extremeties: Tender - Right arm tenderness to middle third of right humerus, No Edema. negative: Eccymosis - NEURO Level of Consciousness: Awake, Alert, Appropriate Motor/Sensory: No Motor Deficit - DERM Integumentary: Warm, Dry, No Rash Course - Re-evaluation Re-evalutation: 07/16/18 09:49 Offered patient pain medication, patient declines. 07/16/18 Patient with comminuted fracture of the proximal humerus. Patient does have an orthopedic that she has seen previously for her prior humeral head fracture. Patient's muscle compartments soft, no concern for dislocation at this time. Patient to sling and given good return precautions. - Vital Signs Vital signs: Temp Pulse Resp BP Pulse Ox 97.9 F 75 16 126/56 H 97 07/16/18 09:28 07/16/18 09:28 07/16/18 09:28 07/16/18 09:28 07/16/18 09:28 - Diagnostic Test Radiology reviewed: Image reviewed, Reports reviewed Procedures - Immobilization Right Arm Pre-Proc Neuro Vasc Exam: Normal Immobilizer type: Sling Performed by: PCT Post-Proc Neuro Vasc Exam: Normal Alignment checked and good: Yes Discharge - Discharge Clinical Impression: Fracture of humeral head, right, closed Qualifiers: Encounter type: initial encounter Qualified Code(s): S42.291A - Other displaced fracture of upper end of right humerus, initial encounter for closed fracture Condition: Stable Disposition: HOME, SELF-CARE Instructions: Ice & Elevation ([facility]), Fracture Proximal Humerus, Sling to be Used ([facility]), Ultram ([facility]) Additional Instructions: Return immediately for any new or worsening symptoms Followup with your primary care provider, call tomorrow to make a followup appointment Follow-up with orthopedics for further evaluation, call Wednesday for an appointment Wear sling while awake only Prescriptions: Tramadol HCl [Ultram 50 mg Tablet] 50 mg PO ASDIR PRN #15 tablet PRN Reason: Forms: Smoking Cessation Education Referrals: ROMAINE JOHNSON MD [Primary Care Provider] - Follow up as needed [facility] [Provider Group] - 07/18/18
--- NOTE | 2018-07-16 10:43 | RADIOLOGY REPORT (SQ) ---
EXAM DESCRIPTION: HUMERUS RIGHT COMPLETED DATE/TIME: 07/16/2018 10:25 am REASON FOR STUDY: fall, RUE pain COMPARISON: 05/28/2012. NUMBER OF VIEWS: Two views. TECHNIQUE: Two radiographic images were acquired of the right humerus to include elbow and shoulder in at least one projection. LIMITATIONS: None. FINDINGS: MINERALIZATION: Normal. BONES: Chronic appearing deformity of the humeral head with new comminuted fracture. SOFT TISSUES: No obvious swelling or foreign body. OTHER: No other significant finding. IMPRESSION: CHRONIC DEFORMITY OF THE HUMERAL HEAD WITH NEW COMMINUTED FRACTURE. TECHNICAL DOCUMENTATION: JOB ID: [id number] [email or web address]- All Rights Reserved Reading location - IP/workstation name: [email or web address]
[2018-07-16 11:36] VITALS: BP 102/88
== END 2018-07-16 11:34 | disposition home or self-care (01) ==
LOC: ER 09:20
DX: S42.291A Other displaced fracture of upper end of right humerus, initial encounter for closed fracture (principal); W19.XXXA Unspecified fall, initial encounter; Y93.89 Activity, other specified; F17.210 Nicotine dependence, cigarettes, uncomplicated; I25.10 Atherosclerotic heart disease of native coronary artery without angina pectoris; I10 Essential (primary) hypertension; J44.9 Chronic obstructive pulmonary disease, unspecified
CPT/HCPCS: 99283; L3650

== ENCOUNTER → 2018-10-21 | Outpatient (CLI) | payer MEDICARE, OTHER ==
[2018-10-21 11:10] LABS: ABSOLUTE BASOPHILS # (AUTO) 0.1 10^3/uL (0.0-0.2); ABSOLUTE EOSINOPHILS # (AUTO) 0.3 10^3/uL (0.0-0.6); ABSOLUTE LYMPHOCYTES (AUTO) 3.1 10^3/uL (0.5-4.7); ABSOLUTE MONOCYTES (AUTO) 0.9 10^3/uL (0.1-1.4); ABSOLUTE NEUT (AUTO) 6.8 10^3/uL (1.7-8.2); BASOPHILS % (AUTO) 0.8 % (0-2); EOSINOPHILS % (AUTO) 2.4 % (0-6); HEMATOCRIT 46.3 % (36.0-47.0); HEMOGLOBIN 15.6 g/dL (12.0-15.5); LYMPHOCYTES % (AUTO) 27.7 % (13-45); MEAN CORPUSCULAR HEMOGLOBIN 32.8 pg (27.0-33.4); MEAN CORPUSCULAR HGB CONC 33.8 g/dL (32.0-36.0); MEAN CORPUSCULAR VOLUME 97 fl (80-97); MONOCYTES % (AUTO) 7.8 % (3-13); PLATELET COUNT 208 10^3/uL (150-450); RED BLOOD COUNT 4.76 10^6/uL (3.72-5.28); SEGMENTED NEUTROPHILS % (AUTO) 61.3 % (42-78); TOTAL CELLS COUNTED % (AUTO) 100 %; WHITE BLOOD COUNT 11.1 10^3/uL (4.0-10.5)
[2018-10-21 11:35] LABS: ALANINE AMINOTRANSFERASE 26 U/L (9-52); ALBUMIN 4.7 g/dL (3.5-5.0); ALKALINE PHOSPHATASE 74 U/L (38-126); ANION GAP 10 (5-19); ASPARTATE AMINO TRANSFERASE 23 U/L (14-36); BILIRUBIN,DIRECT 0.1 mg/dL (0.0-0.4); BILIRUBIN,TOTAL 0.3 mg/dL (0.2-1.3); BLOOD UREA NITROGEN 20 mg/dL (7-20); CALCIUM 10.9 mg/dL (8.4-10.2); CARBON DIOXIDE 31 mmol/L (22-30); CHLORIDE 103 mmol/L (98-107); CHOLESTEROL 168.27 mg/dL (0-200); GLUCOSE 110 mg/dL (75-110); POTASSIUM 4.6 mmol/L (3.6-5.0); SODIUM 143.7 mmol/L (137-145); TRIGLYCERIDES 134 mg/dL (<150)
[2018-10-21 11:46] LABS: DIRECT LDL 86 mg/dL (<100)
== END ==
LOC: OD 10:08
PROVIDERS: ATTEND Internal Medicine
DX: I25.10 Atherosclerotic heart disease of native coronary artery without angina pectoris (principal); I42.1 Obstructive hypertrophic cardiomyopathy; E78.5 Hyperlipidemia, unspecified
CPT/HCPCS: 36415; 80053; 80061; 85025

== ENCOUNTER → 2019-01-05 | Outpatient (CLI) | payer MEDICARE, OTHER ==
[2019-01-05 11:53] LABS: CHOLESTEROL 160.48 mg/dL (0-200); TRIGLYCERIDES 107 mg/dL (<150)
[2019-01-05 12:04] LABS: DIRECT LDL 77 mg/dL (<100)
== END ==
LOC: OD 10:27
PROVIDERS: ATTEND Internal Medicine
DX: E78.49 Other hyperlipidemia (principal); I34.0 Nonrheumatic mitral (valve) insufficiency; I10 Essential (primary) hypertension; I42.8 Other cardiomyopathies; E78.5 Hyperlipidemia, unspecified; F32.9 Major depressive disorder, single episode, unspecified; I44.7 Left bundle-branch block, unspecified; Z79.899 Other long term (current) drug therapy
CPT/HCPCS: 36415; 80061

== ENCOUNTER → 2019-04-26 | Outpatient (CLI) | payer MEDICARE, OTHER ==
[2019-04-26 11:29] LABS: ALBUMIN 4.3 g/dL (3.5-5.0); ALKALINE PHOSPHATASE 55 U/L (38-126); ANION GAP 6 (5-19); ASPARTATE AMINO TRANSFERASE 23 U/L (14-36); BILIRUBIN,DIRECT 0.2 mg/dL (0.0-0.4); BILIRUBIN,TOTAL 0.5 mg/dL (0.2-1.3); BLOOD UREA NITROGEN 15 mg/dL (7-20); CALCIUM 10.2 mg/dL (8.4-10.2); CARBON DIOXIDE 27 mmol/L (22-30); CHLORIDE 109 mmol/L (98-107); GLUCOSE 112 mg/dL (75-110); POTASSIUM 4.5 mmol/L (3.6-5.0); TOTAL PROTEIN 7.2 g/dL (6.3-8.2)
== END ==
LOC: OD 09:49
PROVIDERS: ATTEND Internal Medicine
DX: E03.9 Hypothyroidism, unspecified (principal); I10 Essential (primary) hypertension; I25.10 Atherosclerotic heart disease of native coronary artery without angina pectoris; E55.9 Vitamin D deficiency, unspecified; E83.52 Hypercalcemia
CPT/HCPCS: 36415; 80053; 82306; 84443

== ENCOUNTER → 2020-01-25 | Outpatient (CLI) | payer MEDICARE, OTHER ==
[2020-01-25 11:06] LABS: ABSOLUTE BASOPHILS # (AUTO) 0.1 10^3/uL (0.0-0.2); ABSOLUTE EOSINOPHILS # (AUTO) 0.2 10^3/uL (0.0-0.6); ABSOLUTE LYMPHOCYTES (AUTO) 2.8 10^3/uL (0.5-4.7); ABSOLUTE MONOCYTES (AUTO) 0.8 10^3/uL (0.1-1.4); ABSOLUTE NEUT (AUTO) 4.4 10^3/uL (1.7-8.2); BASOPHILS % (AUTO) 1.1 % (0-2); EOSINOPHILS % (AUTO) 2.4 % (0-6); HEMATOCRIT 45.8 % (36.0-47.0); HEMOGLOBIN 15.6 g/dL (12.0-15.5); LYMPHOCYTES % (AUTO) 33.6 % (13-45); MEAN CORPUSCULAR HEMOGLOBIN 32.8 pg (27.0-33.4); MEAN CORPUSCULAR HGB CONC 34.1 g/dL (32.0-36.0); MEAN CORPUSCULAR VOLUME 96 fl (80-97); MONOCYTES % (AUTO) 9.4 % (3-13); PLATELET COUNT 185 10^3/uL (150-450); RED BLOOD COUNT 4.76 10^6/uL (3.72-5.28); RED CELL DISTRIBUTION WIDTH 13.9 % (11.5-14.0); SEGMENTED NEUTROPHILS % (AUTO) 53.5 % (42-78); TOTAL CELLS COUNTED % (AUTO) 100 %; WHITE BLOOD COUNT 8.3 10^3/uL (4.0-10.5)
[2020-01-25 11:27] LABS: ALBUMIN 4.6 g/dL (3.5-5.0); ALKALINE PHOSPHATASE 69 U/L (38-126); ANION GAP 10 (5-19); ASPARTATE AMINO TRANSFERASE 25 U/L (14-36); BILIRUBIN,TOTAL 0.6 mg/dL (0.2-1.3); BLOOD UREA NITROGEN 13 mg/dL (7-20); CALCIUM 10.5 mg/dL (8.4-10.2); CARBON DIOXIDE 28 mmol/L (22-30); CHLORIDE 101 mmol/L (98-107); CHOLESTEROL 151.44 mg/dL (0-200); GLUCOSE 121 mg/dL (75-110); POTASSIUM 4.5 mmol/L (3.6-5.0); TOTAL PROTEIN 8.1 g/dL (6.3-8.2); TRIGLYCERIDES 116 mg/dL (<150)
[2020-01-25 11:38] LABS: DIRECT LDL 81 mg/dL (<100)
== END ==
LOC: OD 10:26
PROVIDERS: ATTEND Internal Medicine
DX: I25.10 Atherosclerotic heart disease of native coronary artery without angina pectoris (principal); E78.5 Hyperlipidemia, unspecified; R53.83 Other fatigue
CPT/HCPCS: 36415; 80053; 80061; 84443; 85025